=== PATIENT | female | born 1980 | race Caucasian/White ===

== ENCOUNTER 2018-12-11 19:29 | Emergency (ER) | payer MEDICARE, OTHER ==
[~2018-12-11] VITALS: Ht 165.1 cm; Wt 120.2 kg
--- OUTSIDE RECORDS SUMMARY | 2018-12-11 19:32 | XMS REPORT | Continuity of Care Document ---
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 Dental caries 10/19/2018 10/21/2018 [facility] TOOTHACHE Active 10/18/2018 [facility] Epigastric pain 08/20/2017 11/19/2017 [facility] Abdominal pain, acute, epigastric 08/13/2017 11/19/2017 [facility] CHEST PAIN Active 08/12/2017 [facility] NECK PAIN, HEAD PAIN Active 07/27/2013 [facility] 625.9 - FEM GENITAL SYM Active 12/02/2011 [facility] [place] FOOT INJURY Active 11/21/2011 [facility] R SIDE PAIN Active 06/29/2011 [facility] Melanoma Resolved Problem 12/26/2013 [facility] Melanoma Resolved Problem 01/25/2013 [facility] CHEST PAIN NOS Active [facility] Medications Medication Details Route Status Patient Instructions Ordering Provider Order Date Source tramadol hydrochloride 50 MG Oral Tablet 50 mg=1 tab, PO, Q6H, PRN Pain, X 3 day, # 12 tab, 0 Refill(s) Active 10/19/2018 [facility] Amoxicillin 875 MG / Clavulanate 125 MG Oral Tablet [Augmentin 875-mg] 875 mg=1 tab, PO, Q12H, X 10 day, # 20 tab, 0 Refill(s) Active 10/19/2018 [facility] Tramadol 50 mg, 1 tab, Route: PO, Drug form: TAB, ONCE, Dosing Weight 116, kg, > 50 kg, Priority: STAT, Start date: 10/19/18 1:08:00 CDT, Stop date: 10/19/18 1:08:00 CDTNotes: Not to exceed 400mg/day. (Same As: Ultram) Inactive 10/19/2018 [facility] Sucralfate 100 MG/ML Oral Suspension 1 gm=10 ml, PO, Before Meals & Bedtime, # 200 ml, 0 Refill(s) Active 08/13/2017 [facility] Metoclopramide 10 MG Oral Tablet 10 mg=1 tab, PO, Q6H, PRN nausea/vomiting, # 20 tab, 0 Refill(s) Active 08/13/2017 [facility] Ranitidine 150 MG Oral Tablet 150 mg=1 tab, PO, BID, # 60 tab, 0 Refill(s) Active 08/13/2017 [facility] Morphine 4 mg, 1 mL, Route: IVP, Drug form: INJ, ONCE, Dosing Weight 118.182, kg, Priority: STAT, Start date: 08/13/17 0:01:00 CDT, Stop date: 08/13/17 0:01:00 CDTNotes: (Same as:MORPhine Sulfate) Inactive 08/13/2017 [facility] Omnipaque 350 injectable solution 100 mL, Route: IVP, Dosing Weight 118.182, kg, ONCALL, For CTA exam with GFR > 45 mL/min, STAT, Start date: 08/12/17 23:40:00 CDT, Duration: 1 doses or times Inactive 08/13/2017 [facility] Omnipaque 300 injectable solution 115 mL, Route: IVP, Dosing Weight 118.182, kg, ONCALL, GFR > 45 mL/min, STAT, Start date: 08/12/17 22:51:00 CDT, Duration: 1 doses or times Inactive 08/13/2017 [facility] Haldol 5 mg, 1 mL, Route: IM, Drug form: INJ, ONCE, Dosing Weight 118.182, kg, Priority: STAT, Start date: 08/12/17 22:16:00 CDT, Stop date: 08/12/17 22:16:00 CDTNotes: (Same as: Haldol) Inactive 08/13/2017 [facility] Famotidine 20 mg, 2 mL, Route: IVP, Drug form: INJ, ONCE, Dosing Weight 118.182, kg, Priority: STAT, Start date: 08/12/17 21:14:00 CDT, Stop date: 08/12/17 21:14:00 CDTNotes: (Same as: Pepcid) Can be dilute in 5-10cc NS IVP: Slow IV push over at least 2 minutes. Inactive 08/13/2017 [facility] Maalox Advanced Regular Strength SUSP 30 mL, Route: PO, Drug Form: SUSP, Dosing Weight 118.182, kg, ONCE, STAT, Start date: 08/12/17 21:13:00 CDT, Stop date: 08/12/17 21:13:00 CDTNotes: (aluminum hydroxide- magnesium hyd-simethicone [id number]/5ml 30 ml ud ERVIN) Inactive 08/13/2017 [facility] Ondansetron 4 mg, 2 mL, Route: IVP, Drug form: INJ, ONCE, Dosing Weight 118.182, kg, Priority: STAT, Start date: 08/12/17 21:13:00 CDT, Stop date: 08/12/17 21:13:00 CDTNotes: (Same as: Zofran) MEDICATION WASTE Product Size: 4 mg Product Wasted: ___ mg Inactive 08/13/2017 [facility] Morphine 4 mg, 1 mL, Route: IVP, Drug form: INJ, ONCE, Dosing Weight 118.182, kg, Priority: STAT, Start date: 08/12/17 21:13:00 CDT, Stop date: 08/12/17 21:13:00 CDTNotes: (Same as:MORPhine Sulfate) Inactive 08/13/2017 [facility] aspirin 81 mg, 1 tab, Route: PO, Drug form: ECTAB, Daily, Dosing Weight 110, kg, Start date: 01/24/13 9:00:00, Duration: 30 day, Stop date: 02/22/13 9:00:00 PO No Longer Active [facility] 01/24/2013 [facility] pravastatin 40 mg, 2 tab, Route: PO, Drug form: TAB, Daily, Dosing Weight 110, kg, Start date: 01/24/13 9:00:00, Duration: 30 day, Stop date: 02/22/13 9:00:00 PO No Longer Active [facility] 01/24/2013 [facility] simvastatin 20 mg, 1 tab, Route: PO, Drug form: TAB, Bedtime, Dosing Weight 110, kg, Start date: 01/23/13 21:00:00, Duration: 30 day, Stop date: 02/21/13 21:00:00 PO No Longer Active [facility] 01/24/2013 [facility] pravastatin 40 mg oral tablet 40 mg, 1 tab, PO, Daily, 30 tab, Substitution Allowed, TAB PO Active [facility] 01/23/2013 [facility] Aspirin Low Dose 81 mg oral tablet 81 mg, 1 tab, PO, Daily, 30 tab, Substitution Allowed PO Active [facility] 01/23/2013 [facility] Aspirin Low Dose 81 mg oral tablet 81 mg, 1 tab, PO, Daily, 30 tab, Substitution Allowed PO No Longer Active [facility] 01/23/2013 [facility] pravastatin 40 mg oral tablet 40 mg, 1 tab, PO, Daily, 30 tab, Substitution Allowed, TAB PO No Longer Active [facility] 01/23/2013 [facility] lisinopril 2.5 mg, 0.5 tab, Route: PO, Drug form: TAB, Daily, Dosing Weight 110, kg, Start date: 01/23/13 9:00:00, Duration: 30 day, Stop date: 02/21/13 9:00:00 PO No Longer Active [facility] 01/23/2013 [facility] pantoprazole 40 mg, Route: IVP, Drug form: INJ, Daily, Dosing Weight 110, kg, Priority: Routine, Start date: 01/23/13 9:00:00, Duration: 30 day, Stop date: 02/21/13 9:00:00 IVP No Longer Active [facility] 01/23/2013 [facility] Saline Flush 0.9% 5 ml, Route: IVP, Drug Form: INJ, Dosing Weight 104.545, kg, Q12H, Start date: 01/23/13 9:00:00, Duration: 30 day, Stop date: 02/21/13 21:00:00 IVP No Longer Active [facility] 01/23/2013 [facility] nitroglycerin 2% ointment 0.5 inch, Route: TOP, Drug Form: OINT, Dosing Weight 104.545, kg, TID, Start date: 01/23/13 6:00:00, Duration: 30 day, Stop date: 02/21/13 18:00:00 TOP No Longer Active [facility] 01/23/2013 [facility] NS 0.45% IV 1,000 mL 1,000 mL, Rate: 125 ml/hr, Infuse over: 8 hr, Route: IV, Dosing Weight 110 kg, Total Volume: 1,000, Start date: 01/23/13 5:21:00, Duration: 1 day, Stop date: 01/24/13 5:20:00 IV No Longer Active [facility] 01/23/2013 [facility] simvastatin 20 mg, 1 tab, Route: PO, Drug form: TAB, ONCE, Dosing Weight 110, kg, Start date: 01/23/13 3:42:00, Stop date: 01/23/13 3:42:00 PO No Longer Active [facility] 01/23/2013 [facility] morphine Sulfate 2 mg, 1 mL, Route: IVP, Drug form: INJ, Q2H, Dosing Weight 110, kg, PRN Chest Pain, Start date: 01/23/13 3:40:00, Duration: 30 day, Stop date: 02/22/13 3:39:00 IVP No Longer Active [facility] 01/23/2013 [facility] acetaminophen 650 mg, 2 tab, Route: PO, Drug form: TAB, Q6H, Dosing Weight 110, kg, PRN Pain, Start date: 01/23/13 3:40:00, Duration: 30 day, Stop date: 02/22/13 3:39:00 PO No Longer Active [facility] 01/23/2013 [facility] Zofran 4 mg, 2 mL, Route: IV, Drug form: INJ, Q4H, Dosing Weight 110, kg, PRN as needed for nausea/vomiting, Start date: 01/23/13 3:40:00, Duration: 30 day, Stop date: 02/22/13 3:39:00 IV No Longer Active [facility] 01/23/2013 [facility] atropine 0.5 mg, 5 mL, Route: IVP, Drug form: INJ, PRN, PRN Bradycardia, Start date: 01/23/13 2:13:00, Duration: 30 day, Stop date: 02/22/13 2:12:00 IVP No Longer Active [facility] 01/23/2013 [facility] Saline Flush 0.9% 5 ml, Route: IVP, Drug Form: INJ, Dosing Weight 104.545, kg, PRN, PRN Line Flush, Start date: 01/23/13 2:09:00, Duration: 30 day, Stop date: 02/22/13 2:08:00 IVP No Longer Active [facility] 01/23/2013 [facility] nitroglycerin SL Tab 0.4 mg, 1 tab, Route: SL, Drug form: TAB, Q5Min, Dosing Weight 104.545, kg, PRN Chest Pain, Start date: 01/23/13 2:09:00, Duration: 3 doses or times, Stop date: Limited # of times SL No Longer Active [facility] 01/23/2013 [facility] aspirin 324 mg, 4 tab, Route: PO, Drug form: CHEWTAB, ONCE, Dosing Weight 104.545, kg, Start date: 01/23/13 2:09:00, Stop date: 01/23/13 2:09:00 PO No Longer Active [facility] 01/23/2013 [facility] ketorolac 30 mg/mL injectable solution 30 mg, 1 mL, Route: IV, Drug form: INJ, ONCE, Dosing Weight 104.545, kg, Start date: 01/23/13 1:41:00, Stop date: 01/23/13 1:41:00 IV No Longer Active [facility] 01/23/2013 [facility] Saline Flush 0.9% 5 mL, Route: IVP, Drug Form: INJ, Dosing Weight 104.545, kg, Q8H, PRN Line Flush, Start date: 01/22/13 23:49:00, Duration: 30 day, Stop date: 02/21/13 23:48:00, Administer at least once every 8 hoursAdminister at least once every 8 hours IVP No Longer Active [facility] 01/23/2013 [facility] tramadol 50 mg oral tablet 50 mg, Route: PO, ONCE, Start date: 11/21/11 18:00:00, Stop date: 11/21/11 18:00:00 PO No Longer Active [facility] 11/21/2011 [facility] Ultram 50 mg oral tablet 1 - 2 tabs, PO, Q4-6H, PRN, 30 tab, as needed for pain, Substitution Allowed PO Active [facility] 11/21/2011 [facility] ferrous sulfate 325 mg oral enteric coated tablet 325 mg, 1 tab, PO, Daily, 30 tab, Substitution Allowed, ECTAB PO Active [facility] 06/30/2011 [facility] Naprosyn 500 mg oral tablet 500 mg, 1 tab, PO, BID, 14 tab, Substitution Allowed, TAB PO Active [facility] 06/30/2011 [facility] Flexeril 10 mg oral tablet 10 mg, 1 tab, PO, TID, PRN, 15 tab, for spasm, Substitution Allowed, TAB PO Active [facility] 06/30/2011 [facility] acetaminophen-hydrocodone 500 mg-5 mg oral tablet 1-2 tab, PO, Q4-6H, PRN, 15 tab, Pain, Substitution Allowed, Maintenance PO Active [facility] 06/30/2011 [facility] Cipro 500 mg oral tablet 500 mg, 1 tab, PO, BID, 6 tab, Substitution Allowed PO Active [facility] 06/30/2011 [facility] Flexeril 10 mg, 1 tab, Route: PO, Drug form: TAB, ONCE, PRN Spasm, Start date: 06/30/11 3:15:00 PO No Longer Active [facility] 06/30/2011 [facility] Toradol 30 mg/mL injectable solution 30 mg, 1 mL, Route: IV, Drug form: INJ, ONCE, Start date: 06/30/11 3:15:00, Stop date: 06/30/11 3:15:00 IV No Longer Active [facility] 06/30/2011 [facility] acetaminophen-hydrocodone 325 mg-5 mg oral tablet 1 tab, Route: PO, Drug Form: TAB, ONCE, STAT, Start date: 06/30/11 3:15:00, Stop date: 06/30/11 3:15:00 PO No Longer Active [facility] 06/30/2011 [facility] morphine Sulfate 4 mg, Route: IVP, ONCE, Priority: STAT, Start date: 06/30/11 1:38:00, Stop date: 06/30/11 1:38:00 IVP No Longer Active [facility] 06/30/2011 [facility] Zofran 4 mg, Route: IVP, ONCE, Priority: STAT, Start date: 06/29/11 23:49:00, Stop date: 06/29/11 23:49:00 IVP No Longer Active [facility] 06/30/2011 [facility] Sodium Chloride 0.9% (Bolus) IV 1000 mL 1,000 mL, Rate: 1,000 ml/hr, Infuse over: 1 hr, Route: IV, Total Volume: 1,000, Priority: STAT, Start date: 06/29/11 23:49:00, Duration: 1 doses or times, Stop date: 06/30/11 0:48:00, Bolus DoseBolus Dose IV No Longer Active [facility] 06/30/2011 [facility] morphine Sulfate 4 mg, Route: IVP, ONCE, Priority: STAT, Start date: 06/29/11 23:49:00, Stop date: 06/29/11 23:49:00 IVP No Longer Active [facility] 06/30/2011 [facility] Cipro I.V. 400 mg/200 mL intravenous solution 400 mg, Route: IVPB, ONCE, Start date: 06/29/11 23:49:00, Stop date: 06/29/11 23:49:00 IVPB No Longer Active [facility] 06/30/2011 [facility] Allergies, Adverse Reactions, Alerts Substance Category Reaction Severity Reaction type Status Date Reported Comments Source No Known Medication Allergies Assertion Drug allergy [facility] Immunizations No Data Provided for This Section Results Order Name Results Value Reference Range Date Interpretation Comments Source HEMATOLOGY D-Dimer 0.56 08/13/2017 [facility] CARDIAC ENZYMES Total CK 49 12 - 191 08/13/2017 [facility] CARDIAC ENZYMES Troponin-I <0.02 0.00 - 0.40 08/13/2017 [facility] CHEM PANEL Lipase Lvl 123 73 - 393 08/13/2017 [facility] CHEM PANEL A/G Ratio 0.7 0.7 - 1.6 08/13/2017 [facility] CHEM PANEL Globulin 4.7 2.7 - 4.2 08/13/2017 [facility] CHEM PANEL Albumin Lvl 3.2 3.5 - 5.0 08/13/2017 [facility] CHEM PANEL ALT 16 0 - 65 08/13/2017 [facility] CHEM PANEL Alk Phos 99 39 - 136 08/13/2017 [facility] CHEM PANEL AST 8 0 - 37 08/13/2017 [facility] CHEM PANEL Bili Indirect Unable to Calculate 0.0 - 1.0 08/13/2017 [facility] CHEM PANEL Bili Direct <0.1 0.0 - 0.3 08/13/2017 [facility] CHEM PANEL Bili Total 0.3 0.2 - 1.3 08/13/2017 [facility] CHEM PANEL Total Protein 7.9 6.4 - 8.4 08/13/2017 [facility] ELECTROLYTES AGAP 9.2 10.0 - 20.0 08/13/2017 [facility] ELECTROLYTES eGFR 110 08/13/2017 Result Comment: The eGFR is calculated using the CKD-EPI formula. In most young, healthy individuals the eGFR will be >90 mL/min/1.73m2. The eGFR declines with age. An eGFR of 60-89 may be normal in some populations, particularly the elderly, for whom the CKD-EPI formula has not been extensively validated. Use of the eGFR is not recommended in the following populations:

Individuals with unstable creatinine concentrations, including patients and those with serious co-morbid conditions.

Patients with extremes in muscle mass or diet.

The data above are obtained from the National Kidney Disease Education Program (NKDEP) which additionally recommends that when the eGFR is used in patients with extremes of body mass index for purposes of drug dosing, the eGFR should be multiplied by the estimated BMI. [facility] ELECTROLYTES Creatinine Lvl 0.70 0.50 - 1.40 08/13/2017 [facility] ELECTROLYTES CO2 29 24 - 32 08/13/2017 [facility] ELECTROLYTES Chloride Lvl 105 95 - 109 08/13/2017 [facility] ELECTROLYTES Sodium Lvl 140 135 - 145 08/13/2017 [facility] ELECTROLYTES BUN 9 7 - 22 08/13/2017 [facility] ELECTROLYTES Potassium Lvl 3.2 3.5 - 5.1 08/13/2017 [facility] ELECTROLYTES Calcium Lvl 9.1 8.5 - 10.5 08/13/2017 [facility] ELECTROLYTES Glucose Lvl 94 70 - 99 08/13/2017 [facility] ENDOCRINOLOGY S Preg Negative *NA* (08/12/17 7:41 PM) Negative 08/13/2017 [facility] MPV 8.5 7.4 - 10.4 08/13/2017 [facility] RDW 16.0 11.5 - 14.5 08/13/2017 [facility] Platelet 363 133 - 450 08/13/2017 [facility] RBC 4.85 4.20 - 5.40 08/13/2017 [facility] WBC 9.6 3.7 - 10.4 08/13/2017 [facility] MCHC 33.7 32.0 - 36.0 08/13/2017 [facility] MCH 28.2 27.0 - 31.0 08/13/2017 [facility] MCV 83.8 80.0 - 98.0 08/13/2017 [facility] Hct 40.6 36.0 - 48.0 08/13/2017 [facility] Hgb 13.7 12.0 - 16.0 08/13/2017 [facility] Lymphocytes 27.8 20.0 - 40.0 08/13/2017 [facility] Segs 63.1 45.0 - 75.0 08/13/2017 [facility] Monocytes # 0.6 0.0 - 0.8 08/13/2017 [facility] Eosinophils # 0.2 0.0 - 0.5 08/13/2017 [facility] Segs-Bands # 6.0 1.5 - 8.1 08/13/2017 [facility] Lymphocytes # 2.7 1.0 - 5.5 08/13/2017 [facility] Basophils 0.4 0.0 - 1.0 08/13/2017 [facility] Eosinophils 2.2 0.0 - 4.0 08/13/2017 [facility] Basophils # 0.0 0.0 - 0.2 08/13/2017 [facility] Monocytes 6.5 2.0 - 12.0 08/13/2017 [facility] CARDIAC ENZYMES BNP 35 <=100 pg/mL 12/24/2013 <sup>3</sup>Interpretive Data: Elevated results are in line with increasing severity of
congestive heart failure. Minor elevations between 100 and 300
may be seen with Myocardial Ischemia, Sodium retaining drugs,
and compensated/treated heart failure. [facility] CARDIAC ENZYMES Troponin-I <0.02 0.00 - 0.40 12/24/2013 [facility] CARDIAC ENZYMES Total CK 29 12 - 191 12/24/2013 [facility] CHEM PANEL Lipase Lvl 140 73 - 393 12/24/2013 [facility] CHEM PANEL eGFR 113 12/24/2013 <sup>1</sup>Result Comment: The eGFR is calculated using the CKD-EPI formula. In most young, healthy individuals the eGFR will be >90 mL/min/1.73m2. The eGFR declines with age. An eGFR of 60-89 may be normal in some populations, particularly the elderly, for whom the CKD-EPI formula has not been extensively validated. Use of the eGFR is not recommended in the following populations:& lt;br/>
Individuals with unstable creatinine concentrations, including patients and those with serious co-morbid conditions.

Patients with extremes in muscle mass or diet.

The data above are obtained from the National Kidney Disease Education Program (NKDEP) which additionally recommends that when the eGFR is used in patients with extremes of body mass index for purposes of drug dosing, the eGFR should be multiplied by the estimated BMI. [facility] CHEM PANEL Total Protein 6.8 6.4 - 8.4 12/24/2013 [facility] CHEM PANEL Calcium Lvl 8.8 8.5 - 10.5 12/24/2013 [facility] CHEM PANEL BUN 14 7 - 22 12/24/2013 [facility] CHEM PANEL Glucose Lvl 90 70 - 99 12/24/2013 <sup>2</sup>Interpretive Data: Adult reference range values reflect the clinical guidelines
of the [place] [employer]. [facility] CHEM PANEL Albumin Lvl 2.9 3.5 - 5.0 12/24/2013 [facility] CHEM PANEL ALT 19 0 - 65 12/24/2013 [facility] CHEM PANEL CO2 28 24 - 32 12/24/2013 [facility] CHEM PANEL Alk Phos 81 39 - 136 12/24/2013 [facility] CHEM PANEL Bili Total 0.2 0.2 - 1.3 12/24/2013 [facility] CHEM PANEL AST 10 0 - 37 12/24/2013 [facility] CHEM PANEL Creatinine Lvl 0.7 0.5 - 1.4 12/24/2013 [facility] CHEM PANEL Potassium Lvl 3.6 3.5 - 5.1 12/24/2013 [facility] CHEM PANEL Sodium Lvl 141 135 - 145 12/24/2013 [facility] CHEM PANEL Chloride Lvl 108 95 - 109 12/24/2013 [facility] CHEM PANEL B/C Ratio 20 6 - 25 12/24/2013 [facility] CHEM PANEL AGAP 8.6 10.0 - 20.0 12/24/2013 [facility] CHEM PANEL A/G Ratio 0.7 0.7 - 1.6 12/24/2013 [facility] CHEM PANEL Globulin 3.9 2.0 - 4.0 12/24/2013 [facility] HEMATOLOGY Lymphocytes # 2.7 1.0 - 5.5 12/24/2013 [facility] HEMATOLOGY Segs-Bands # 5.7 1.5 - 8.1 12/24/2013 [facility] HEMATOLOGY Monocytes # 0.6 0.0 - 0.8 12/24/2013 [facility] HEMATOLOGY Eosinophils # 0.1 0.0 - 0.5 12/24/2013 [facility] Lymphocytes 29.5 20.0 - 40.0 12/24/2013 [facility] Eosinophils 1.4 0.0 - 4.0 12/24/2013 [facility] Monocytes 6.4 2.0 - 12.0 12/24/2013 [facility] Basophils 0.3 0.0 - 1.0 12/24/2013 [facility] Segs 62.4 45.0 - 75.0 12/24/2013 [facility] D-Dimer 0.27 12/24/2013 <sup>5</sup>Interpretive Data: In [facility], quantitative D-Dimer is generally greater than
0.66 ug/mL FEU. Values of quantitative D-Dimer less than
0.40 ug/mL FEU have been reported to be associated with a low
probability of deep vein thrombosis/pulmonary embolism.
This test alone should not be used to rule out DVT/PE. [facility] Platelet 322 133 - 450 12/24/2013 [facility] WBC 9.2 3.7 - 10.4 12/24/2013 [facility] Hgb 12.1 12.0 - 16.0 12/24/2013 [facility] RBC 4.34 4.20 - 5.40 12/24/2013 [facility] MCV 82.3 81.0 - 99.0 12/24/2013 [facility] Hct 35.7 36.0 - 48.0 12/24/2013 [facility] RDW 15.3 11.5 - 14.5 12/24/2013 [facility] MCHC 33.7 32.0 - 36.0 12/24/2013 [facility] MCH 27.8 27.0 - 31.0 12/24/2013 [facility] MPV 8.5 7.4 - 10.4 12/24/2013 [facility] INR 1.03 0.85 - 1.17 12/24/2013 <sup>4</sup>Interpretive Data: RECOMMENDED RANGES FOR PROTIME INR:
2.0-3.0 for most medical and surgical thromboembolic states.
2.5-3.5 for artificial heart valves and recurrent embolism.

INR SHOULD BE USED ONLY FOR PATIENTS ON STABLE ANTICOAGULANT THERAPY. [facility] PTT 29.5 22.9 - 35.8 12/24/2013 <sup>6</sup>Interpretive Data: Heparin Therapeutic Range: 57 - 92 Seconds [facility] HEMATOLOGY PT 13.4 12.0 - 14.7 12/24/2013 [facility] URINE AND STOOL UA Ketones Negative mg/dL Negative mg/dL 12/24/2013 [facility] URINE AND STOOL UA Spec Grav 1.025 <=1.030 12/24/2013 [facility] URINE AND STOOL UA Turbidity Marked *ABN* (12/23/13 7:20 PM) Clear 12/24/2013 [facility] URINE AND STOOL UA Color Yellow *NA* (12/23/13 7:20 PM) Yellow 12/24/2013 [facility] URINE AND STOOL UA Bili Negative *NA* (12/23/13 7:20 PM) Negative 12/24/2013 [facility] URINE AND STOOL UA Blood Negative (12/23/13 7:20 PM) Negative 12/24/2013 [facility] URINE AND STOOL UA RBC 8 0 - 2 12/24/2013 [facility] URINE AND STOOL UA pH 5.0 5.0 - 8.0 12/24/2013 [facility] URINE AND STOOL UA Glucose Negative mg/dL Negative mg/dL 12/24/2013 [facility] URINE AND STOOL UA Protein Negative mg/dL Negative mg/dL 12/24/2013 [facility] URINE AND STOOL UA Urobilinogen 2.0 0.1 - 1.0 12/24/2013 [facility] URINE AND STOOL UA WBC 6 0 - 5 12/24/2013 [facility] URINE AND STOOL UA Sq Epi Many /LPF Few /LPF 12/24/2013 [facility] URINE AND STOOL UA Leuk Est Small *ABN* (12/23/13 7:20 PM) Negative 12/24/2013 [facility] URINE AND STOOL UA Nitrite Negative (12/23/13 7:20 PM) Negative 12/24/2013 [facility] URINE AND STOOL UA Mucus Few /LPF None Seen /LPF 12/24/2013 [facility] URINE AND STOOL UA Bacteria Occasional /HPF None Seen /HPF 12/24/2013 [facility] URINE CHEM U Preg Negative (12/23/13 7:20 PM) Negative 12/24/2013 [facility] CHEMISTRY Total CK 38 12 - 191 01/23/2013 Normal [facility] CHEMISTRY Troponin-I <0.02 0.00 - 0.40 01/23/2013 Normal [facility] CHEMISTRY Troponin-I <0.02 0.00 - 0.40 01/23/2013 Normal [facility] CHEMISTRY Total CK 34 12 - 191 01/23/2013 Normal [facility] CHEMISTRY Bili Indirect >0.1 0.0 - 1.0 01/23/2013 Normal [facility] CHEMISTRY A/G Ratio 0.9 0.7 - 1.6 01/23/2013 Normal [facility] CHEMISTRY Globulin 3.5 2.0 - 4.0 01/23/2013 Normal [facility] CHEMISTRY Bili Total 0.2 0.2 - 1.3 01/23/2013 Normal [facility] CHEMISTRY Bili Direct <0.1 0.0 - 0.3 01/23/2013 Normal [facility] CHEMISTRY AST 5 0 - 37 01/23/2013 Normal [facility] CHEMISTRY Alk Phos 82 39 - 136 01/23/2013 Normal [facility] CHEMISTRY Albumin Lvl 3.0 3.5 - 5.0 01/23/2013 LOW [facility] CHEMISTRY ALT 15 0 - 65 01/23/2013 Normal [facility] CHEMISTRY Total Protein 6.5 6.4 - 8.4 01/23/2013 Normal [facility] CHEMISTRY Magnesium Lvl 1.9 1.8 - 2.4 01/23/2013 Normal [facility] CHEMISTRY Phosphorus 3.5 2.5 - 4.5 01/23/2013 Normal [facility] CHEMISTRY Trig 225 <=149 01/23/2013 [facility] CHEMISTRY Chol 214 <=199 01/23/2013 [facility] CHEMISTRY LDL 142 <=99 01/23/2013 [facility] CHEMISTRY HDL 27 >=61 01/23/2013 LOW [facility] CHEMISTRY CHD Risk 7.93 3.90 - 5.80 01/23/2013 [facility] CHEMISTRY eGFR 120 01/23/2013 NA <sup>1</sup>Result Comment: The eGFR is calculated using the CKD-EPI formula. In most young, healthy individuals the eGFR will be >90 mL/min/1.73m2. The eGFR declines with age. An eGFR of 60-89 may be normal in some populations, particularly the elderly, for whom the CKD-EPI formula has not been extensively validated. Use of the eGFR is not recommended in the following populations:& lt;br/>
Individuals with unstable creatinine concentrations, including patients and those with serious co-morbid conditions.

Patients with extremes in muscle mass or diet.

The data above are obtained from the National Kidney Disease Education Program (NKDEP) which additionally recommends that when the eGFR is used in patients with extremes of body mass index for purposes of drug dosing, the eGFR should be multiplied by the estimated BMI. [facility] CHEMISTRY Calcium Lvl 8.7 8.5 - 10.5 01/23/2013 Normal [facility] CHEMISTRY AGAP 11.8 10.0 - 20.0 01/23/2013 Normal [facility] CHEMISTRY Glucose Lvl 90 70 - 99 01/23/2013 Normal <sup>3</sup>Interpretive Data: Adult reference range values reflect the clinical guidelines
of the [place] [employer]. [facility] CHEMISTRY Creatinine Lvl 0.6 0.5 - 1.4 01/23/2013 Normal [facility] CHEMISTRY BUN 16 7 - 22 01/23/2013 [facility] CHEMISTRY CO2 26 24 - 32 01/23/2013 Normal [facility] CHEMISTRY Chloride Lvl 111 95 - 109 01/23/2013 [facility] CHEMISTRY Sodium Lvl 145 135 - 145 01/23/2013 Normal [facility] CHEMISTRY Potassium Lvl 3.8 3.5 - 5.1 01/23/2013 Normal [facility] HEMATOLOGY Basophils 0.7 0.0 - 1.0 01/23/2013 Normal [facility] HEMATOLOGY Eosinophils 1.6 0.0 - 4.0 01/23/2013 Normal [facility] HEMATOLOGY Segs-Bands # 5.3 1.5 - 8.1 01/23/2013 Normal [facility] HEMATOLOGY Monocytes 5.4 2.0 - 12.0 01/23/2013 Normal [facility] HEMATOLOGY Lymphocytes 30.1 20.0 - 40.0 01/23/2013 Normal [facility] HEMATOLOGY Eosinophils # 0.1 0.0 - 0.5 01/23/2013 Normal [facility] HEMATOLOGY Monocytes # 0.5 0.0 - 0.8 01/23/2013 Normal [facility] HEMATOLOGY Basophils # 0.1 0.0 - 0.2 01/23/2013 Normal [facility] HEMATOLOGY Lymphocytes # 2.6 1.0 - 5.5 01/23/2013 Normal [facility] HEMATOLOGY Segs 62.2 45.0 - 75.0 01/23/2013 Normal [facility] HEMATOLOGY MCH 25.0 27.0 - 31.0 01/23/2013 LOW [facility] HEMATOLOGY Hct 33.2 36.0 - 48.0 01/23/2013 LOW [facility] HEMATOLOGY MCV 78.1 81.0 - 99.0 01/23/2013 LOW [facility] HEMATOLOGY RDW 17.4 11.5 - 14.5 01/23/2013 HI [facility] HEMATOLOGY Platelet 307 133 - 450 01/23/2013 Normal [facility] HEMATOLOGY MCHC 32.0 32.0 - 36.0 01/23/2013 Normal [facility] Hgb 10.6 12.0 - 16.0 01/23/2013 LOW [facility] MPV 8.4 7.4 - 10.4 01/23/2013 Normal [facility] HEMATOLOGY RBC 4.25 4.20 - 5.40 01/23/2013 Normal [facility] WBC 8.5 3.7 - 10.4 01/23/2013 Normal [facility] INR 1.00 0.85 - 1.17 01/23/2013 Normal <sup>6</sup>Interpretive Data: RECOMMENDED RANGES FOR PROTIME INR:
2.0-3.0 for most medical and surgical thromboembolic states.
2.5-3.5 for artificial heart valves and recurrent embolism.

INR SHOULD BE USED ONLY FOR PATIENTS ON STABLE ANTICOAGULANT THERAPY. [facility] PTT 29.0 22.9 - 35.8 01/23/2013 Normal <sup>9</sup>Interpretive Data: Heparin Therapeutic Range: 57 - 92 Seconds [facility] HEMATOLOGY PT 13.1 12.0 - 14.7 01/23/2013 Normal [facility] CHEMISTRY S Preg Negative *NA* (01/23/2013 00:05:00) Negative 01/23/2013 NA [facility] CHEMISTRY Magnesium Lvl 1.9 1.8 - 2.4 01/23/2013 Normal [facility] CHEMISTRY eGFR 97 01/23/2013 NA <sup>2</sup>Result Comment: The eGFR is calculated using the CKD-EPI formula. In most young, healthy individuals the eGFR will be >90 mL/min/1.73m2. The eGFR declines with age. An eGFR of 60-89 may be normal in some populations, particularly the elderly, for whom the CKD-EPI formula has not been extensively validated. Use of the eGFR is not recommended in the following populations:& lt;br/>
Individuals with unstable creatinine concentrations, including patients and those with serious co-morbid conditions.

Patients with extremes in muscle mass or diet.

The data above are obtained from the National Kidney Disease Education Program (NKDEP) which additionally recommends that when the eGFR is used in patients with extremes of body mass index for purposes of drug dosing, the eGFR should be multiplied by the estimated BMI. [facility] CHEMISTRY B/C Ratio 16 6 - 25 01/23/2013 Normal [facility] CHEMISTRY Bili Total 0.2 0.2 - 1.3 01/23/2013 Normal [facility] CHEMISTRY AGAP 10.5 10.0 - 20.0 01/23/2013 Normal [facility] CHEMISTRY AST 7 0 - 37 01/23/2013 Normal [facility] CHEMISTRY Albumin Lvl 3.0 3.5 - 5.0 01/23/2013 LOW [facility] CHEMISTRY Total Protein 7.1 6.4 - 8.4 01/23/2013 Normal [facility] CHEMISTRY Alk Phos 85 39 - 136 01/23/2013 Normal [facility] CHEMISTRY ALT 15 0 - 65 01/23/2013 Normal [facility] CHEMISTRY A/G Ratio 0.7 0.7 - 1.6 01/23/2013 Normal [facility] CHEMISTRY Globulin 4.1 2.0 - 4.0 01/23/2013 HI [facility] CHEMISTRY BUN 13 7 - 22 01/23/2013 Normal [facility] CHEMISTRY Creatinine Lvl 0.8 0.5 - 1.4 01/23/2013 Normal [facility] CHEMISTRY Glucose Lvl 90 70 - 99 01/23/2013 Normal <sup>4</sup>Interpretive Data: Adult reference range values reflect the clinical guidelines
of the [place] [employer]. [facility] CHEMISTRY CO2 31 24 - 32 01/23/2013 Normal [facility] CHEMISTRY Calcium Lvl 8.6 8.5 - 10.5 01/23/2013 Normal [facility] CHEMISTRY Sodium Lvl 146 135 - 145 01/23/2013 HI [facility] CHEMISTRY Potassium Lvl 3.5 3.5 - 5.1 01/23/2013 Normal [facility] CHEMISTRY Chloride Lvl 108 95 - 109 01/23/2013 Normal [facility] CHEMISTRY Troponin-I <0.02 0.00 - 0.40 01/23/2013 Normal [facility] CHEMISTRY CK MB <0.5 0.5 - 3.6 01/23/2013 Normal [facility] CHEMISTRY Total CK 37 12 - 191 01/23/2013 Normal [facility] CHEMISTRY BNP 21 <=100 01/23/2013 Normal <sup>5</sup>Interpretive Data: Elevated results are in line with increasing severity of
congestive heart failure. Minor elevations between 100 and 300
may be seen with Myocardial Ischemia, Sodium retaining drugs,
and compensated/treated heart failure. [facility] CHEMISTRY CK MB Index <1.4 0.0 - 2.5 01/23/2013 Normal [facility] HEMATOLOGY PTT 29.2 22.9 - 35.8 01/23/2013 Normal <sup>10</sup>Interpretive Data: Heparin Therapeutic Range: 57 - 92 Seconds [facility] HEMATOLOGY PT 13.0 12.0 - 14.7 01/23/2013 Normal [facility] HEMATOLOGY INR 0.99 0.85 - 1.17 01/23/2013 Normal <sup>7</sup>Interpretive Data: RECOMMENDED RANGES FOR PROTIME INR:
2.0-3.0 for most medical and surgical thromboembolic states.
2.5-3.5 for artificial heart valves and recurrent embolism.

INR SHOULD BE USED ONLY FOR PATIENTS ON STABLE ANTICOAGULANT THERAPY. [facility] HEMATOLOGY D-Dimer 0.31 01/23/2013 NA <sup>8</sup>Interpretive Data: In DIC, quantitative D-Dimer is generally greater than
0.66 ug/mL FEU. Values of quantitative D-Dimer less than
0.40 ug/mL FEU have been reported to be associated with a low
probability of deep vein thrombosis/pulmonary embolism.
This test alone should not be used to rule out DVT/PE. [facility] HEMATOLOGY WBC 8.1 3.7 - 10.4 01/23/2013 Normal [facility] HEMATOLOGY Hct 35.1 36.0 - 48.0 01/23/2013 LOW [facility] HEMATOLOGY Platelet 329 133 - 450 01/23/2013 Normal [facility] HEMATOLOGY RDW 17.6 11.5 - 14.5 01/23/2013 HI [facility] HEMATOLOGY MCHC 32.3 32.0 - 36.0 01/23/2013 Normal [facility] HEMATOLOGY MCH 25.2 27.0 - 31.0 01/23/2013 LOW [facility] HEMATOLOGY MCV 78.1 81.0 - 99.0 01/23/2013 LOW [facility] HEMATOLOGY Hgb 11.3 12.0 - 16.0 01/23/2013 LOW [facility] HEMATOLOGY RBC 4.49 4.20 - 5.40 01/23/2013 Normal [facility] HEMATOLOGY MPV 8.5 7.4 - 10.4 01/23/2013 Normal [facility] HEMATOLOGY Segs-Bands # 5.6 1.5 - 8.1 01/23/2013 Normal [facility] HEMATOLOGY Basophils 0.0 0.0 - 1.0 01/23/2013 Normal [facility] HEMATOLOGY Monocytes # 0.3 0.0 - 0.8 01/23/2013 Normal [facility] HEMATOLOGY Lymphocytes # 2.0 1.0 - 5.5 01/23/2013 Normal [facility] HEMATOLOGY Eosinophils 1.8 0.0 - 4.0 01/23/2013 Normal [facility] HEMATOLOGY Basophils # 0.0 0.0 - 0.2 01/23/2013 Normal [facility] HEMATOLOGY Eosinophils # 0.1 0.0 - 0.5 01/23/2013 Normal [facility] HEMATOLOGY Lymphocytes 25.1 20.0 - 40.0 01/23/2013 Normal [facility] HEMATOLOGY Segs 69.4 45.0 - 75.0 01/23/2013 Normal [facility] HEMATOLOGY Monocytes 3.7 2.0 - 12.0 01/23/2013 Normal [facility] CHEMISTRY U Preg Negative (06/30/2011 00:36:00) Negative 06/30/2011 Normal [facility] CHEMISTRY Creatinine Lvl 0.7 0.5 - 1.4 06/30/2011 Normal [facility] CHEMISTRY Sodium Lvl 142 135 - 145 06/30/2011 Normal [facility] CHEMISTRY CO2 25 24 - 32 06/30/2011 Normal [facility] CHEMISTRY Chloride Lvl 110 95 - 109 06/30/2011 [facility] CHEMISTRY Potassium Lvl 3.5 3.5 - 5.1 06/30/2011 Normal [facility] CHEMISTRY Calcium Lvl 8.5 8.5 - 10.5 06/30/2011 Normal [facility] CHEMISTRY Glucose Lvl 93 06/30/2011 NA <sup>1</sup>Interpretive Data: Reference Ranges : 0 - 7 days : 41 - 90 mg/dL 7 days - 150 yrs : 70 - 99 mg/dL (fasting), based on the clinical recommendations of the [place] [employer]. [facility] CHEMISTRY Total Protein 7.8 6.4 - 8.4 06/30/2011 Normal [facility] CHEMISTRY ALT 15 0 - 65 06/30/2011 Normal [facility] CHEMISTRY Alk Phos 66 39 - 136 06/30/2011 Normal [facility] CHEMISTRY Albumin Lvl 3.3 3.5 - 5.0 06/30/2011 LOW [facility] CHEMISTRY BUN 16 7 - 22 06/30/2011 Normal [facility] CHEMISTRY A/G Ratio 0.7 0.7 - 1.6 06/30/2011 Normal [facility] CHEMISTRY Bili Total 0.2 0.2 - 1.3 06/30/2011 Normal [facility] CHEMISTRY AST 8 0 - 37 06/30/2011 Normal [facility] CHEMISTRY Globulin 4.5 2.0 - 4.0 06/30/2011 HI [facility] CHEMISTRY B/C Ratio 23 6 - 25 06/30/2011 Normal [facility] CHEMISTRY AGAP 10.5 10.0 - 20.0 06/30/2011 Normal [facility] HEMATOLOGY Microcyte 1+ 25 *ABN* (06/30/2011 00:36:00) None Seen 06/30/2011 ABN <sup>25</sup>Result Comment: Collection date/time has been modified to: 00:36:00. Previous collection date/time: 00:36:00. [facility] HEMATOLOGY Hypochrom Slight 24 (06/30/2011 00:36:00) None Seen 06/30/2011 Normal <sup>24</sup>Result Comment: Collection date/time has been modified to: 00:36:00. Previous collection date/time: 00:36:00. [facility] HEMATOLOGY Polychrom Slight 23 (06/30/2011 00:36:00) None Seen 06/30/2011 Normal <sup>23</sup>Result Comment: Collection date/time has been modified to: 00:36:00. Previous collection date/time: 00:36:00. [facility] HEMATOLOGY Elliptocyte Slight 26 *ABN* (06/30/2011 00:36:00) None Seen 06/30/2011 ABN <sup>26</sup>Result Comment: Collection date/time has been modified to: 00:36:00. Previous collection date/time: 00:36:00. [facility] HEMATOLOGY Basophils 0.5 0.0 - 1.0 06/30/2011 Normal <sup>16</sup>Result Comment: Collection date/time has been modified to: 00:36:00. Previous collection date/time: 00:36:00. [facility] Segs-Bands # 7.6 1.5 - 8.1 06/30/2011 Normal <sup>17</sup>Result Comment: Collection date/time has been modified to: 00:36:00. Previous collection date/time: 00:36:00. [facility] RBC Morph See Note 22 (06/30/2011 00:36:00) 06/30/2011 Normal <sup>22</sup>Result Comment: Collection date/time has been modified to: 00:36:00. Previous collection date/time: 00:36:00. [facility] Lymphocytes 23.5 20.0 - 40.0 06/30/2011 Normal <sup>13</sup>Result Comment: Collection date/time has been modified to: 00:36:00. Previous collection date/time: 00:36:00. [facility] Monocytes 6.4 2.0 - 12.0 06/30/2011 Normal <sup>14</sup>Result Comment: Collection date/time has been modified to: 00:36:00. Previous collection date/time: 00:36:00. [facility] Eosinophils 2.3 0.0 - 4.0 06/30/2011 Normal <sup>15</sup>Result Comment: Collection date/time has been modified to: 00:36:00. Previous collection date/time: 00:36:00. [facility] Segs 67.3 45.0 - 75.0 06/30/2011 Normal <sup>12</sup>Result Comment: Collection date/time has been modified to: 00:36:00. Previous collection date/time: 00:36:00. [facility] Plt Morph Normal 27 (06/30/2011 00:36:00) 06/30/2011 Normal <sup>27</sup>Result Comment: Collection date/time has been modified to: 00:36:00. Previous collection date/time: 00:36:00. [facility] Monocytes # 0.7 0.0 - 0.8 06/30/2011 Normal <sup>19</sup>Result Comment: Collection date/time has been modified to: 00:36:00. Previous collection date/time: 00:36:00. [facility] Basophils # 0.1 0.0 - 0.2 06/30/2011 Normal <sup>21</sup>Result Comment: Collection date/time has been modified to: 00:36:00. Previous collection date/time: 00:36:00. [facility] Lymphocytes # 2.7 1.0 - 5.5 06/30/2011 Normal <sup>18</sup>Result Comment: Collection date/time has been modified to: 00:36:00. Previous collection date/time: 00:36:00. [facility] Eosinophils # 0.3 0.0 - 0.5 06/30/2011 Normal <sup>20</sup>Result Comment: Collection date/time has been modified to: 00:36:00. Previous collection date/time: 00:36:00. [facility] MPV 8.5 7.4 - 10.4 06/30/2011 Normal <sup>11</sup>Result Comment: Collection date/time has been modified to: 00:36:00. Previous collection date/time: 00:36:00. [facility] Platelet 417 133 - 450 06/30/2011 Normal <sup>10</sup>Result Comment: Collection date/time has been modified to: 00:36:00. Previous collection date/time: 00:36:00. [facility] RDW 19.1 11.5 - 14.5 06/30/2011 HI <sup>9</sup>Result Comment: Collection date/time has been modified to: 00:36:00. Previous collection date/time: 00:36:00. [facility] MCHC 31.9 32.0 - 36.0 06/30/2011 LOW <sup>8</sup>Result Comment: Collection date/time has been modified to: 00:36:00. Previous collection date/time: 00:36:00. [facility] MCV 65.3 81.0 - 99.0 06/30/2011 LOW <sup>6</sup>Result Comment: Collection date/time has been modified to: 00:36:00. Previous collection date/time: 00:36:00. [facility] Hct 28.2 36.0 - 48.0 06/30/2011 LOW <sup>5</sup>Result Comment: Collection date/time has been modified to: 00:36:00. Previous collection date/time: 00:36:00. [facility] MCH 20.8 27.0 - 31.0 06/30/2011 LOW <sup>7</sup>Result Comment: Collection date/time has been modified to: 00:36:00. Previous collection date/time: 00:36:00. [facility] RBC 4.32 4.20 - 5.40 06/30/2011 Normal <sup>3</sup>Result Comment: Collection date/time has been modified to: 00:36:00. Previous collection date/time: 00:36:00. [facility] Hgb 9.0 12.0 - 16.0 06/30/2011 LOW <sup>4</sup>Result Comment: Collection date/time has been modified to: 00:36:00. Previous collection date/time: 00:36:00. [facility] WBC 11.3 3.7 - 10.4 06/30/2011 HI <sup>2</sup>Result Comment: Collection date/time has been modified to: 00:36:00. Previous collection date/time: 00:36:00. [facility] URINALYSIS UA Bili Negative *NA* (06/30/2011 00:36:00) Negative 06/30/2011 NA [facility] URINALYSIS UA Nitrite Negative (06/30/2011 00:36:00) Negative 06/30/2011 Normal [facility] URINALYSIS UA Blood Negative (06/30/2011 00:36:00) Negative 06/30/2011 Normal [facility] URINALYSIS UA Urobilinogen 0.2 0.1 - 1.0 06/30/2011 Normal [facility] URINALYSIS UA Leuk Est Small *ABN* (06/30/2011 00:36:00) Negative 06/30/2011 ABN [facility] URINALYSIS UA Turbidity Cloudy *ABN* (06/30/2011 00:36:00) Clear 06/30/2011 ABN [facility] URINALYSIS UA pH 5.5 5.0 - 8.0 06/30/2011 Normal [facility] URINALYSIS UA Color Yellow *NA* (06/30/2011 00:36:00) Yellow 06/30/2011 NA [facility] URINALYSIS UA Protein Negative (06/30/2011 00:36:00) Negative 06/30/2011 Normal [facility] URINALYSIS UA Spec Grav >=1.030 *ABN* (06/30/2011 00:36:00) <=1.030 06/30/2011 ABN [facility] URINALYSIS UA Glucose Negative (06/30/2011 00:36:00) Negative 06/30/2011 Normal [facility] URINALYSIS UA Ketones Negative *NA* (06/30/2011 00:36:00) Negative 06/30/2011 NA [facility] URINALYSIS UA WBC 0-2 /HPF (06/30/2011 00:36:00) None Seen 06/30/2011 Normal [facility] URINALYSIS UA Bacteria Few /HPF (06/30/2011 00:36:00) None Seen 06/30/2011 Normal [facility] URINALYSIS UA RBC 0-2 /HPF (06/30/2011 00:36:00) 0 - 2 06/30/2011 Normal [facility] URINALYSIS Micro? Performed (06/30/2011 00:36:00) 06/30/2011 Normal [facility] URINALYSIS UA Sq Epi Many /LPF *ABN* (06/30/2011 00:36:00) Few 06/30/2011 ABN [facility] Pathology Reports No Data Provided for This Section Diagnostic Reports Report Value Date Source Chest Pulmonary Embolism CTA Clinical Indication: - DAFNE/chest pain with sob. Comparison: None. TECHNIQUE: Helical CT angiography of the chest was performed from the lung bases through the thoracic inlet following the administration of intravenous contrast. Axial, coronal, and sagittal multiplanar reconstructions provided. 3D post- processed reconstructions were generated on the scanner workstation and are also provided. . IV contrast: 75 cc Omnipaque. Dose: ZRB=088 mGy-cm FINDINGS: PULMONARY ARTERIES: No pulmonary emboli are identified to the segmental level. The pulmonary trunk, left, and right main pulmonary arteries are not enlarged. SYSTEMIC VESSELS: The thoracic aorta is normal in caliber without dissection or aneurysm. The great vessels appear unremarkable. HEART: There is no evidence of RV strain. The cardiac chambers are otherwise unremarkable. There is no pericardial effusion. LUNGS AND PLEURA: Lungs are adequately inflated with minimal bibasilar dependent subsegmental atelectasis. No confluent interstitial or alveolar airspace opacities. No worrisome pulmonary nodules. No pneumothorax or pleural effusion. The trachea and central airways are clear. MEDIASTINUM: No hilar or mediastinal adenopathy. VISUALIZED UPPER ABDOMEN: Unremarkable. OSSEOUS STRUCTURES: No acute abnormality seen. SOFT TISSUE: Unremarkable. IMPRESSION: 1. Negative for pulmonary embolus to the segmental level. 2. No other acute intrathoracic abnormality identified. SL: YAW 08/12/2017 [facility] Chest 2 views DX Study: Chest 2 views DX Clinical Indication: - chest pain Comparison: Chest x-ray from 12/23/2013 FINDINGS: The cardiac silhouette is normal in size. The lungs are clear and without consolidation or congestion. No pleural effusion or pneumothorax is seen. The osseous structures are unremarkable. IMPRESSION: No acute cardiopulmonary disease. SL: CHELI 08/12/2017 [facility] Chest 1view HISTORY: Chest pain. One view portable chest. Comparison 01/22/2013. Enlarged cardiac silhouette. Pulmonary vasculature appears congested. Pulmonary interstitial prominence likely edema. Consider volume overload CHF clinically. SL:13 12/23/2013 [facility] Cardiac SPECT multi studies NM Location: [facility] The patient exercised for 8 minutes and one seconds on Joseph protocol. The patient reached 86% of the target heart rate. Cardiolite was injected during peak stress as well as during rest. The myocardial perfusion was obtained using standard procedure. The myocardial perfusion was normal during both phases. No evidence of ischemia. Ejection fraction was 61 % with normal wall motion. Conclusion: Normal myocardial perfusion study. 01/23/2013 [facility] Chest 1view Portable chest: The cardiac silhouette and pulmonary vasculature are within normal limits. The lungs and pleural spaces are clear. There is no significant change compared to 07/02/2011. IMPRESSION: No acute radiographic abnormality in the chest. SL:13 01/23/2013 [facility] Consultation Notes No Data Provided for This Section Discharge Summaries No Data Provided for This Section History and Physicals No Data Provided for This Section Vital Signs Vital Sign Value Date Comments Source Systolic (mm Hg) 158 10/19/2018 [facility] Diastolic (mm Hg) 78 10/19/2018 [facility] Weight 116 10/19/2018 [facility] Temperature Oral (F) 98 F 10/19/2018 [facility] Respitory Rate 20 10/19/2018 [facility] Heart Rate 74 10/19/2018 [facility] Systolic (mm Hg) 177 10/19/2018 [facility] Diastolic (mm Hg) 107 10/19/2018 [facility] Respitory Rate 18 08/13/2017 [facility] Systolic (mm Hg) 125 08/13/2017 [facility] Diastolic (mm Hg) 83 08/13/2017 [facility] Heart Rate 73 08/13/2017 [facility] Systolic (mm Hg) 113 08/13/2017 [facility] Diastolic (mm Hg) 83 08/13/2017 [facility] Respitory Rate 18 08/13/2017 [facility] Heart Rate 71 08/13/2017 [facility] Temperature Oral (F) 97.7 F 08/13/2017 [facility] Respitory Rate 17 08/13/2017 [facility] Heart Rate 60 08/13/2017 [facility] Systolic (mm Hg) 105 08/13/2017 [facility] Diastolic (mm Hg) 71 08/13/2017 [facility] Weight 118.182 08/13/2017 [facility] Temperature Oral (F) 98.3 F 08/13/2017 [facility] Weight 104.545 12/23/2013 [facility] Height 165.1 cm 12/23/2013 [facility] BMI Calculated 38.35 12/23/2013 [facility] Diastolic (mm Hg) 87 12/23/2013 [facility] Systolic (mm Hg) 135 12/23/2013 [facility] Temperature Oral (F) 98.6 F 12/23/2013 [facility] Respitory Rate 18 12/23/2013 [facility] Heart Rate 91 12/23/2013 [facility] Weight 104.545 07/28/2013 [facility] Diastolic (mm Hg) 86 07/28/2013 [facility] Systolic (mm Hg) 128 07/28/2013 [facility] Temperature Oral (F) 97.7 F 07/28/2013 [facility] Heart Rate 78 07/28/2013 [facility] Rate 18 07/28/2013 [facility] Temperature Oral (F) 98 F 01/23/2013 [facility] Diastolic (mm Hg) 63 01/23/2013 [facility] Heart Rate 82 01/23/2013 [facility] Systolic (mm Hg) 93 01/23/2013 [facility] Respitory Rate 18 01/23/2013 [facility] Temperature Oral (F) 97.7 F 01/23/2013 [facility] Diastolic (mm Hg) 72 01/23/2013 [facility] Systolic (mm Hg) 122 01/23/2013 [facility] Respitory Rate 16 01/23/2013 [facility] Systolic (mm Hg) 118 01/23/2013 [facility]itory Rate 18 01/23/2013 [facility] Diastolic (mm Hg) 74 01/23/2013 [facility] Heart Rate 66 01/23/2013 [facility] Temperature Oral (F) 97.7 F 01/23/2013 [facility] Heart Rate 66 01/23/2013 [facility] Height 165.1 cm 01/23/2013 [facility] Height 165.1 cm 01/23/2013 [facility] Weight 110 01/23/2013 [facility] Height 165.10 cm 11/21/2011 [facility] Weight 104.545 11/21/2011 [facility] Temperature Oral (F) 97.1 F 06/30/2011 [facility] Diastolic (mm Hg) 69 06/30/2011 [facility] Respitory Rate 16 06/30/2011 [facility] Heart Rate 78 06/30/2011 [facility] Systolic (mm Hg) 127 06/30/2011 [facility] Height 167.64 cm 06/30/2011 [facility] Weight 118.182 06/30/2011 [facility] Temperature Oral (F) 98.0 F 06/30/2011 [facility] Heart Rate 99 06/30/2011 [facility] Respitory Rate 16 06/30/2011 [facility] Systolic (mm Hg) 138 06/30/2011 [facility] Diastolic (mm Hg) 78 06/30/2011 [facility] Encounters Location Location Details Encounter Type Encounter Number Reason For Visit Attending Provider ADM Date DC Date Status Source [facility] [id number] BRAULIO EUBANKSLAM 06/29/2011 06/30/2011 Discharged [facility] Emergency [id number] FOOT INJURY PAMELA JENNA 11/21/2011 11/21/2011 Active [facility] OU [id number] CHEST PAIN FELIPE JAVIER 01/22/2013 01/23/2013 Active [facility] [id number] _[id number] Jovi Bernardat 07/28/2013 07/28/2013 [facility] [id number] Lee Acevedo 12/23/2013 12/24/2013 [facility] Emergency [id number] Saeid Frederick 08/13/2017 08/13/2017 [facility] Emergency [id number] Bee Poeole 10/19/2018 10/19/2018 [facility] [place] [id number] 625.9 - FEM GENITAL SYM FAY KIMBERLY Cancel [place] Procedures No Data Provided for This Section Assessment and Plan No Data Provided for This Section Plan of Care No Data Provided for This Section Social History Social History Date Source Social History TypeResponse Smoking Status Current every day smoker; Type: Cigarettes; Previous treatment: None; Ready to change: No; Lives with someone who smokes; Cigarette Smoking Last 365 Days Yes; Reg Smoking Cessation Counseling Yes; Tobacco use per day: 2; Started at age: 12.0; entered on: 10/19/18 10/19/2018 [facility] Social History TypeResponse Smoking Status Current every day smoker; Type: Cigarettes; Previous treatment: None; Ready to change: No; Lives with someone who smokes; Cigarette Smoking Last 365 Days Yes; Reg Smoking Cessation Counseling Yes; Tobacco use per day: 2; Started at age: 12.0; entered on: 08/12/17 08/13/2017 [facility] Social History TypeResponse Smoking Status Current every day smoker, Type: Cigarettes, Previous treatment: None, Ready to change: No, Exposure to Tobacco Smoke Lives with someone who smokes, Cigarette Smoking Last 365 Days Yes, Reg Smoking Cessation Counseling Yes 07/28/2013 [facility] Family History No Data Provided for This Section Advance Directives No Data Provided for This Section Functional Status No Data Provided for This Section
--- OUTSIDE RECORDS SUMMARY | 2018-12-11 19:33 | XMS REPORT | CCD ---
Author Author Auto Generated Organization [facility] Address Unknown Phone Unavailable Care Team Providers Care Tankerman Name Role Phone Rafa Apodaca CP Allergies, Adverse Reactions, Alerts Substance Reaction Status NKDA Active Problem List Condition Effective Dates Status Melanoma Resolved Medications Medication Instructions Start Date End Date Status aspirin 81 mg, 1 tab, Route: PO, Drug form: 01/24/2013 01/23/2013 Canceled ECTAB, Daily, Dosing Weight 110, kg, Start date: 01/24/13 9:00:00, Duration: 30 day, Stop date: 02/22/13 9:00:00 pravastatin 40 mg, 2 tab, Route: PO, Drug form: 01/24/2013 01/23/2013 Canceled TAB, Daily, Dosing Weight 110, kg, Start date: 01/24/13 9:00:00, Duration: 30 day, Stop date: 02/22/13 9:00:00 simvastatin 20 mg, 1 tab, Route: PO, Drug form: 01/23/2013 01/23/2013 Completed TAB, ONCE, Dosing Weight 110, kg, Start date: 01/23/13 3:42:00, Stop date: 01/23/13 3:42:00 simvastatin 20 mg, 1 tab, Route: PO, Drug form: 01/23/2013 01/23/2013 Canceled TAB, Bedtime, Dosing Weight 110, kg, Start date: 01/23/13 21:00:00, Duration: 30 day, Stop date: 02/21/13 21:00:00 NS 0.45% IV 1,000 mL 1,000 mL, Rate: 125 ml/hr, Infuse 01/23/2013 01/23/2013 Discontinued over: 8 hr, Route: IV, Dosing Weight 110 kg, Total Volume: 1,000, Start date: 01/23/13 5:21:00, Duration: 1 day, Stop date: 01/24/13 5:20:00 morphine Sulfate 2 mg, 1 mL, Route: IVP, Drug form: 01/23/2013 01/23/2013 Discontinued INJ, Q2H, Dosing Weight 110, kg, PRN Chest Pain, Start date: 01/23/13 3:40:00, Duration: 30 day, Stop date: 02/22/13 3:39:00 lisinopril 2.5 mg, 0.5 tab, Route: PO, Drug 01/23/2013 01/23/2013 Discontinued form: TAB, Daily, Dosing Weight 110, kg, Start date: 01/23/13 9:00:00, Duration: 30 day, Stop date: 02/21/13 9:00:00 acetaminophen 650 mg, 2 tab, Route: PO, Drug 01/23/2013 01/23/2013 Discontinued form: TAB, Q6H, Dosing Weight 110, kg, PRN Pain, Start date: 01/23/13 3:40:00, Duration: 30 day, Stop date: 02/22/13 3:39:00 Zofran 4 mg, 2 mL, Route: IV, Drug form: 01/23/2013 01/23/2013 Discontinued INJ, Q4H, Dosing Weight 110, kg, PRN as needed for nausea/vomiting, Start date: 01/23/13 3:40:00, Duration: 30 day, Stop date: 02/22/13 3:39:00 pantoprazole 40 mg, Route: IVP, Drug form: INJ, 01/23/2013 01/23/2013 Discontinued Daily, Dosing Weight 110, kg, Priority: Routine, Start date: 01/23/13 9:00:00, Duration: 30 day, Stop date: 02/21/13 9:00:00 Saline Flush 0.9% 5 mL, Route: IVP, Drug Form: INJ, 01/22/2013 01/23/2013 Discontinued Dosing Weight 104.545, kg, Q8H, PRN Line Flush, Start date: 01/22/13 23:49:00, Duration: 30 day, Stop date: 02/21/13 23:48:00, Administer at least once every 8 hours Administer at least once every 8 hours pravastatin 40 mg 40 mg, 1 tab, PO, Daily, 30 tab, 01/23/2013 Ordered oral tablet Substitution Allowed, TAB Aspirin Low Dose 81 81 mg, 1 tab, PO, Daily, 30 tab, 01/23/2013 Ordered mg oral tablet Substitution Allowed Aspirin Low Dose 81 81 mg, 1 tab, PO, Daily, 30 tab, 01/23/2013 01/23/2013 Discontinued mg oral tablet Substitution Allowed pravastatin 40 mg 40 mg, 1 tab, PO, Daily, 30 tab, 01/23/2013 01/23/2013 Discontinued oral tablet Substitution Allowed, TAB atropine 0.5 mg, 5 mL, Route: IVP, Drug 01/23/2013 01/23/2013 Discontinued form: INJ, PRN, PRN Bradycardia, Start date: 01/23/13 2:13:00, Duration: 30 day, Stop date: 02/22/13 2:12:00 ketorolac 30 mg/mL 30 mg, 1 mL, Route: IV, Drug form: 01/23/2013 01/23/2013 Completed injectable solution INJ, ONCE, Dosing Weight 104.545, kg, Start date: 01/23/13 1:41:00, Stop date: 01/23/13 1:41:00 Saline Flush 0.9% 5 ml, Route: IVP, Drug Form: INJ, 01/23/2013 01/23/2013 Discontinued Dosing Weight 104.545, kg, PRN, PRN Line Flush, Start date: 01/23/13 2:09:00, Duration: 30 day, Stop date: 02/22/13 2:08:00 Saline Flush 0.9% 5 ml, Route: IVP, Drug Form: INJ, 01/23/2013 01/23/2013 Discontinued Dosing Weight 104.545, kg, Q12H, Start date: 01/23/13 9:00:00, Duration: 30 day, Stop date: 02/21/13 21:00:00 nitroglycerin 2% 0.5 inch, Route: TOP, Drug Form: 01/23/2013 01/23/2013 Discontinued ointment OINT, Dosing Weight 104.545, kg, TID, Start date: 01/23/13 6:00:00, Duration: 30 day, Stop date: 02/21/13 18:00:00 nitroglycerin SL Tab 0.4 mg, 1 tab, Route: SL, Drug 01/23/2013 01/23/2013 Discontinued form: TAB, Q5Min, Dosing Weight 104.545, kg, PRN Chest Pain, Start date: 01/23/13 2:09:00, Duration: 3 doses or times, Stop date: Limited # of times aspirin 324 mg, 4 tab, Route: PO, Drug 01/23/2013 01/23/2013 Completed form: CHEWTAB, ONCE, Dosing Weight 104.545, kg, Start date: 01/23/13 2:09:00, Stop date: 01/23/13 2:09:00 Vital Signs Most recent to oldest [Reference Range]: 1 2 3 Height 165.1 cm (01/23/2013 05:34:00) 165.1 cm (01/23/2013 02:11:00) Current Weight 110.994 kg (01/23/2013 05:34:00) Temperature Oral [96.4-99.1 DegF] 98 DegF (01/23/2013 12:45:00) 97.7 DegF (01/23/2013 12:20:00) 97.7 DegF (01/23/2013 09:10:00) Systolic Blood Pressure [90-140 mmHg] 93 mmHg (01/23/2013 12:45:00) 122 mmHg (01/23/2013 12:20:00) 118 mmHg (01/23/2013 09:10:00) Diastolic Blood Pressure [60-90 mmHg] 63 mmHg (01/23/2013 12:45:00) 72 mmHg (01/23/2013 12:20:00) 74 mmHg (01/23/2013 09:10:00) Respiratory Rate [14-20 BRMIN] 18 BRMIN (01/23/2013 12:45:00) 16 BRMIN (01/23/2013 12:20:00) 18 BRMIN (01/23/2013 09:10:00) Peripheral Pulse Rate [60-100 bpm] 82 bpm (01/23/2013 12:45:00) 66 bpm (01/23/2013 09:10:00) 66 bpm (01/23/2013 07:41:00) Weight 110 kg (01/23/2013 02:11:00) Results CHEMISTRY Most recent to oldest [Reference Range]: 1 2 3 Sodium Lvl [135-145 mEq/L] 145 mEq/L (01/23/2013 06:37:00) 146 mEq/L *HI* (01/23/2013 00:05:00) Potassium Lvl [3.5-5.1 mEq/L] 3.8 mEq/L (01/23/2013 06:37:00) 3.5 mEq/L (01/23/2013 00:05:00) Chloride Lvl [95-109 mEq/L] 111 mEq/L *HI* (01/23/2013 06:37:00) 108 mEq/L (01/23/2013 00:05:00) CO2 [24-32 mEq/L] 26 mEq/L (01/23/2013 06:37:00) 31 mEq/L (01/23/2013 00:05:00) AGAP [10.0-20.0 mEq/L] 11.8 mEq/L (01/23/2013 06:37:00) 10.5 mEq/L (01/23/2013 00:05:00) Creatinine Lvl [0.5-1.4 mg/dL] 0.6 mg/dL (01/23/2013 06:37:00) 0.8 mg/dL (01/23/2013 00:05:00) eGFR 120 mL/min/1.73m2 1 *NA* (01/23/2013 06:37:00) 97 mL/min/1.73m2 2 *NA* (01/23/2013 00:05:00) BUN [7-22 mg/dL] 16 mg/dL (01/23/2013 06:37:00) 13 mg/dL (01/23/2013 00:05:00) B/C Ratio [6-25] 16 (01/23/2013 00:05:00) Glucose Lvl [70-99 mg/dL] 90 mg/dL 3 (01/23/2013 06:37:00) 90 mg/dL 4 (01/23/2013 00:05:00) Total Protein [6.4-8.4 g/dL] 6.5 g/dL (01/23/2013 06:37:00) 7.1 g/dL (01/23/2013 00:05:00) Albumin Lvl [3.5-5.0 g/dL] 3.0 g/dL *LOW* (01/23/2013 06:37:00) 3.0 g/dL *LOW* (01/23/2013 00:05:00) Globulin [2.0-4.0 g/dL] 3.5 g/dL (01/23/2013 06:37:00) 4.1 g/dL *HI* (01/23/2013 00:05:00) A/G Ratio [0.7-1.6] 0.9 (01/23/2013 06:37:00) 0.7 (01/23/2013 00:05:00) Calcium Lvl [8.5-10.5 mg/dL] 8.7 mg/dL (01/23/2013 06:37:00) 8.6 mg/dL (01/23/2013 00:05:00) Phosphorus [2.5-4.5 mg/dL] 3.5 mg/dL (01/23/2013 06:37:00) Magnesium Lvl [1.8-2.4 mg/dL] 1.9 mg/dL (01/23/2013 06:37:00) 1.9 mg/dL (01/23/2013 00:05:00) ALT [0-65 unit/L] 15 unit/L (01/23/2013 06:37:00) 15 unit/L (01/23/2013 00:05:00) AST [0-37 unit/L] 5 unit/L (01/23/2013 06:37:00) 7 unit/L (01/23/2013 00:05:00) Alk Phos [39-136 unit/L] 82 unit/L (01/23/2013 06:37:00) 85 unit/L (01/23/2013 00:05:00) Bili Total [0.2-1.3 mg/dL] 0.2 mg/dL (01/23/2013 06:37:00) 0.2 mg/dL (01/23/2013 00:05:00) Bili Direct [0.0-0.3 mg/dL] <0.1 mg/dL (01/23/2013 06:37:00) Bili Indirect [0.0-1.0 mg/dL] >0.1 mg/dL (01/23/2013 06:37:00) Total CK [12-191 unit/L] 38 unit/L (01/23/2013 12:47:00) 34 unit/L (01/23/2013:37:00) 37 unit/L (01/23/2013 00:05:00) CK MB [0.5-3.6 ng/mL] <0.5 ng/mL (01/23/2013 00:05:00) CK MB Index [0.0-2.5] <1.4 (01/23/2013 00:05:00) Troponin-I [0.00-0.40 ng/mL] <0.02 ng/mL (01/23/2013 12:47:00) <0.02 ng/mL (01/23/2013:37:00) <0.02 ng/mL (01/23/2013 00:05:00) BNP [<=100 pg/mL] 21 pg/mL 5 (01/23/2013 00:05:00) CHD Risk [3.90-5.80] 7.93 *HI* (01/23/2013 06:37:00) Chol [<=199 mg/dL] 214 mg/dL *HI* (01/23/2013:37:00) Trig [<=149 mg/dL] 225 mg/dL *HI* (01/23/2013 06:37:00) HDL [>=61 mg/dL] 27 mg/dL *LOW* (01/23/2013:37:00) LDL [<=99 mg/dL] 142 mg/dL *HI* (01/23/2013:37:00) S Preg [Negative] Negative *NA* (01/23/2013 00:05:00) 1Result Comment: The eGFR is calculated using the [...] from the National Kidney Disease Education Program ( NKDEP) which additionally recommends that when the eGFR is used in patients with extremes of body mass index for purposes of drug dosing, the eGFR should be mul tiplied by the estimated BMI. 2Result Comment: The eGFR is calculated using the [...] from the National Kidney Disease Education Program ( NKDEP) which additionally recommends that when the eGFR is used in patients with extremes of body mass index for purposes of drug dosing, the eGFR should be mul tiplied by the estimated BMI. 3Interpretive Data: Adult reference range values reflect the clinical guidelines of the [place] [employer]. 4Interpretive Data: Adult reference range values reflect the clinical guidelines of the [place] [employer]. 5Interpretive Data: Elevated results are in line with increasing severity of congestive heart failure. Minor elevations between 100 and 300 may be seen with Myocardial Ischemia, Sodium retaining drugs, and compensated/treated heart failure. HEMATOLOGY Most recent to oldest [Reference Range]: 1 2 3 WBC [3.7-10.4 K/CMM] 8.5 K/CMM (01/23/2013 06:37:00) 8.1 K/CMM (01/23/2013 00:05:00) RBC [4.20-5.40 M/CMM] 4.25 M/CMM (01/23/2013 06:37:00) 4.49 M/CMM (01/23/2013 00:05:00) Hgb [12.0-16.0 g/dL] 10.6 g/dL *LOW* (01/23/2013 06:37:00) 11.3 g/dL *LOW* (01/23/2013 00:05:00) Hct [36.0-48.0 %] 33.2 % *LOW* (01/23/2013 06:37:00) 35.1 % *LOW* (01/23/2013 00:05:00) MCV [81.0-99.0 fL] 78.1 fL *LOW* (01/23/2013 06:37:00) 78.1 fL *LOW* (01/23/2013 00:05:00) MCH [27.0-31.0 pg] 25.0 pg *LOW* (01/23/2013 06:37:00) 25.2 pg *LOW* (01/23/2013 00:05:00) MCHC [32.0-36.0 g/dL] 32.0 g/dL (01/23/2013 06:37:00) 32.3 g/dL (01/23/2013 00:05:00) RDW [11.5-14.5 %] 17.4 % *HI* (01/23/2013 06:37:00) 17.6 % *HI* (01/23/2013 00:05:00) Platelet [133-450 K/CMM] 307 K/CMM (01/23/2013 06:37:00) 329 K/CMM (01/23/2013 00:05:00) MPV [7.4-10.4 fL] 8.4 fL (01/23/2013 06:37:00) 8.5 fL (01/23/2013 00:05:00) Segs [45.0-75.0 %] 62.2 % (01/23/2013 06:37:00) 69.4 % (01/23/2013 00:05:00) Lymphocytes [20.0-40.0 %] 30.1 % (01/23/2013 06:37:00) 25.1 % (01/23/2013 00:05:00) Monocytes [2.0-12.0 %] 5.4 % (01/23/2013 06:37:00) 3.7 % (01/23/2013 00:05:00) Eosinophils [0.0-4.0 %] 1.6 % (01/23/2013 06:37:00) 1.8 % (01/23/2013 00:05:00) Basophils [0.0-1.0 %] 0.7 % (01/23/2013 06:37:00) 0.0 % (01/23/2013 00:05:00) Segs-Bands # [1.5-8.1 K/CMM] 5.3 K/CMM (01/23/2013 06:37:00) 5.6 K/CMM (01/23/2013 00:05:00) Lymphocytes # [1.0-5.5 K/CMM] 2.6 K/CMM (01/23/2013 06:37:00) 2.0 K/CMM (01/23/2013 00:05:00) Monocytes # [0.0-0.8 K/CMM] 0.5 K/CMM (01/23/2013 06:37:00) 0.3 K/CMM (01/23/2013 00:05:00) Eosinophils # [0.0-0.5 K/CMM] 0.1 K/CMM (01/23/2013 06:37:00) 0.1 K/CMM (01/23/2013 00:05:00) Basophils # [0.0-0.2 K/CMM] 0.1 K/CMM (01/23/2013 06:37:00) 0.0 K/CMM (01/23/2013 00:05:00) PT [12.0-14.7 seconds] 13.1 seconds (01/23/2013 06:37:00) 13.0 seconds (01/23/2013 00:05:00) INR [0.85-1.17] 1.00 6 (01/23/2013 06:37:00) 0.99 7 (01/23/2013 00:05:00) D-Dimer 0.31 ug/mL FEU 8 *NA* (01/23/2013 00:05:00) PTT [22.9-35.8 seconds] 29.0 seconds 9 (01/23/2013 06:37:00) 29.2 seconds 10 (01/23/2013 00:05:00) 6Interpretive Data: RECOMMENDED RANGES FOR PROTIME INR: 2.0-3.0 for most medical and surgical thromboembolic states. 2.5-3.5 for artificial heart valves and recurrent embolism. INR SHOULD BE USED ONLY FOR PATIENTS ON STABLE ANTICOAGULANT THERAPY. 7Interpretive Data: RECOMMENDED RANGES FOR PROTIME INR: 2.0-3.0 for most medical and surgical thromboembolic states. 2.5-3.5 for artificial heart valves and recurrent embolism. INR SHOULD BE USED ONLY FOR PATIENTS ON STABLE ANTICOAGULANT THERAPY. 8Interpretive Data: In DIC, quantitative D-Dimer is generally greater than 0.66 ug/mL FEU. Values of quantitative D-Dimer less than 0.40 ug/mL FEU have been reported to be associated with a low probability of deep vein thrombosis/pulmonary embolism. This test alone should not be used to rule out DVT/PE. 9Interpretive Data: Heparin Therapeutic Range: 57 - 92 Seconds 10Interpretive Data: Heparin Therapeutic Range: 57 - 92 Seconds
--- OUTSIDE RECORDS SUMMARY | 2018-12-11 19:33 | XMS REPORT | Summary of Care ---
Author Organization Unknown Address Unknown Phone Unavailable Encounter Dates Location Diagnoses Discharge Providers Disposition 07/27/2013 [facility] Non-Emergent [facility] 07/27/2013 [address] [place], [place] [id number] [place] [address] Reason for Visit NECK PAIN, HEAD PAIN Vital Signs Most recent to 1 oldest [Reference Range]: Temperature Oral 97.7 DegF [96.4-99.1 DegF] (07/27/2013 21:33:00 [place] Systolic Blood 128 mmHg Pressure [90-140 (07/27/2013 21:33:00 [place]) mmHg] Diastolic Blood 86 mmHg Pressure [60-90 (07/27/2013 21:33:00 [place] mmHg] Respiratory Rate 18 BRMIN [14-20 BRMIN] (07/27/2013 21:33:00 [place] Peripheral Pulse 78 bpm Rate [60-100 bpm] (07/27/2013 21:33:00 [place] Weight 104.545 kg (07/27/2013 21:33:00 [place] Problem List Condition Effective Dates Status Health Status Informant Melanoma(Confirmed) Resolved Allergies, Adverse Reactions, Alerts Status Substance Reaction Severity Active NKDA Medications No data available for this section Medications Administered During Your Visit No data available for this section Immunizations No data available for this section Social History Social History Type Response Smoking Status Use: Current every day smoker. Type: Cigarettes. 1.5 per day. Started age 12.0 Years. Previous treatment: None. Ready to change: No. Tobacco smoke exposure: Lives with someone who smokes. Did the Patient Smoke Cigarettes Anytime During the Last 365 Days? Yes. Cessation Counseling Provided? Yes.
--- OUTSIDE RECORDS SUMMARY | 2018-12-11 19:33 | XMS REPORT | CCD ---
Author Author Auto Generated Organization [facility] Address Unknown Phone Unavailable Care Team Providers Care Donor Relations Officer Name Role Phone Marilyn Martinez CP Allergies, Adverse Reactions, Alerts Substance Reaction Status NKDA Active Medications Medication Instructions Start Date End Date Status Zofran 4 mg, Route: IVP, ONCE, Priority: 06/29/2011 06/30/2011 Completed STAT, Start date: 06/29/11 23:49:00, Stop date: 06/29/11 23:49:00 Sodium Chloride 0.9% 1,000 mL, Rate: 1,000 ml/hr, Infuse 06/29/2011 06/30/2011 Completed (Bolus) IV 1000 mL over: 1 hr, Route: IV, Total Volume: 1,000, Priority: STAT, Start date: 06/29/11 23:49:00, Duration: 1 doses or times, Stop date: 06/30/11 0:48:00, Bolus Dose Bolus Dose morphine Sulfate 4 mg, Route: IVP, ONCE, Priority: 06/29/2011 06/30/2011 Completed STAT, Start date: 06/29/11 23:49:00, Stop date: 06/29/11 23:49:00 Cipro I.V. 400 400 mg, Route: IVPB, ONCE, Start 06/29/2011 06/30/2011 Completed mg/200 mL date: 06/29/11 23:49:00, Stop date: intravenous solution 06/29/11 23:49:00 morphine Sulfate 4 mg, Route: IVP, ONCE, Priority: 06/30/2011 06/30/2011 Completed STAT, Start date: 06/30/11 1:38:00, Stop date: 06/30/11 1:38:00 ferrous sulfate 325 325 mg, 1 tab, PO, Daily, 30 tab, 06/30/2011 Ordered mg oral enteric Substitution Allowed, ECTAB coated tablet Naprosyn 500 mg oral 500 mg, 1 tab, PO, BID, 14 tab, 06/30/2011 Ordered tablet Substitution Allowed, TAB Cipro 500 mg oral 500 mg, 1 tab, PO, BID, 6 tab, 06/30/2011 Ordered tablet Substitution Allowed acetaminophen-hydroc 1-2 tab, PO, Q4-6H, PRN, 15 tab, 06/30/2011 Ordered odone 500 mg-5 mg Pain, Substitution Allowed, oral tablet Maintenance Flexeril 10 mg oral 10 mg, 1 tab, PO, TID, PRN, 15 tab, 06/30/2011 Ordered tablet for spasm, Substitution Allowed, TAB Flexeril 10 mg, 1 tab, Route: PO, Drug form: 06/30/2011 06/30/2011 Completed TAB, ONCE, PRN Spasm, Start date: 06/30/11 3:15:00 Toradol 30 mg/mL 30 mg, 1 mL, Route: IV, Drug form: 06/30/2011 06/30/2011 Completed injectable solution INJ, ONCE, Start date: 06/30/11 3:15:00, Stop date: 06/30/11 3:15:00 acetaminophen-hydroc 1 tab, Route: PO, Drug Form: TAB, 06/30/2011 06/30/2011 Completed odone 325 mg-5 mg ONCE, STAT, Start date: 06/30/11 oral tablet 3:15:00, Stop date: 06/30/11 3:15:00 Vital Signs Most recent to oldest [Reference Range]: 1 2 Height 167.64 cm (06/29/2011 23:10:00) Temperature Oral [96.4-99.1 DegF] 97.1 DegF (06/30/2011 03:45:00) 98.0 DegF (06/29/2011 23:10:00) Systolic Blood Pressure [90-140 mmHg] 127 mmHg (06/30/2011 03:45:00) 138 mmHg (06/29/2011 23:10:00) Diastolic Blood Pressure [60-90 mmHg] 69 mmHg (06/30/2011 03:45:00) 78 mmHg (06/29/2011 23:10:00) Respiratory Rate [14-20 BRMIN] 16 BRMIN (06/30/2011 03:45:00) 16 BRMIN (06/29/2011 23:10:00) Peripheral Pulse Rate [60-100 bpm] 78 bpm (06/30/2011 03:45:00) 99 bpm (06/29/2011 23:10:00) Weight 118.182 kg (06/29/2011 23:10:00) Results URINALYSIS Most recent to oldest [Reference Range]: 1 UA Turbidity [Clear] Cloudy *ABN* (06/30/2011 00:36:00) UA Color [Yellow] Yellow *NA* (06/30/2011 00:36:00) UA pH [5.0-8.0] 5.5 (06/30/2011 00:36:00) UA Spec Grav [<=1.030] >=1.030 *ABN* (06/30/2011 00:36:00) UA Glucose [Negative] Negative (06/30/2011 00:36:00) UA Blood [Negative] Negative (06/30/2011 00:36:00) UA Ketones [Negative] Negative *NA* (06/30/2011 00:36:00) UA Protein [Negative] Negative (06/30/2011 00:36:00) UA Urobilinogen [0.1-1.0 EU/dL] 0.2 EU/dL (06/30/2011 00:36:00) UA Bili [Negative] Negative *NA* (06/30/2011 00:36:00) UA Leuk Est [Negative] Small *ABN* (06/30/2011 00:36:00) UA Nitrite [Negative] Negative (06/30/2011 00:36:00) UA WBC [None Seen /HPF] 0-2 /HPF (06/30/2011 00:36:00) UA RBC [0-2 /HPF] 0-2 /HPF (06/30/2011 00:36:00) UA Bacteria [None Seen /HPF] Few /HPF (06/30/2011 00:36:00) UA Sq Epi [Few /LPF] Many /LPF *ABN* (06/30/2011 00:36:00) Micro? Performed (06/30/2011 00:36:00) CHEMISTRY Most recent to oldest [Reference Range]: 1 Sodium Lvl [135-145 mEq/L] 142 mEq/L (06/30/2011 00:36:00) Potassium Lvl [3.5-5.1 mEq/L] 3.5 mEq/L (06/30/2011 00:36:00) Chloride Lvl [95-109 mEq/L] 110 mEq/L *HI* (06/30/2011 00:36:00) CO2 [24-32 mEq/L] 25 mEq/L (06/30/2011 00:36:00) AGAP [10.0-20.0 mEq/L] 10.5 mEq/L (06/30/2011 00:36:00) Creatinine Lvl [0.5-1.4 mg/dL] 0.7 mg/dL (06/30/2011 00:36:00) BUN [7-22 mg/dL] 16 mg/dL (06/30/2011 00:36:00) B/C Ratio [6-25] 23 (06/30/2011 00:36:00) Glucose Lvl 93 mg/dL 1 *NA* (06/30/2011 00:36:00) Total Protein [6.4-8.4 g/dL] 7.8 g/dL (06/30/2011 00:36:00) Albumin Lvl [3.5-5.0 g/dL] 3.3 g/dL *LOW* (06/30/2011 00:36:00) Globulin [2.0-4.0 g/dL] 4.5 g/dL *HI* (06/30/2011 00:36:00) A/G Ratio [0.7-1.6] 0.7 (06/30/2011 00:36:00) Calcium Lvl [8.5-10.5 mg/dL] 8.5 mg/dL (06/30/2011 00:36:00) ALT [0-65 U/L] 15 U/L (06/30/2011 00:36:00) AST [0-37 U/L] 8 U/L (06/30/2011 00:36:00) Alk Phos [39-136 U/L] 66 U/L (06/30/2011 00:36:00) Bili Total [0.2-1.3 mg/dL] 0.2 mg/dL (06/30/2011 00:36:00) U Preg [Negative] Negative (06/30/2011 00:36:00) 1Interpretive Data: Reference Ranges : 0 - 7 days : 41 - 90 mg/dL7 days - 150 yrs : 70 - 99 mg/dL (fasting), based on the clinical recommendations of the [place] [employer]. HEMATOLOGY Most recent to oldest [Reference Range]: 1 WBC [3.7-10.4 K/CMM] 11.3 K/CMM 2 *HI* (06/30/2011 00:36:00) RBC [4.20-5.40 M/CMM] 4.32 M/CMM 3 (06/30/2011 00:36:00) Hgb [12.0-16.0 g/dL] 9.0 g/dL 4 *LOW* (06/30/2011 00:36:00) Hct [36.0-48.0 %] 28.2 % 5 *LOW* (06/30/2011 00:36:00) MCV [81.0-99.0 fL] 65.3 fL 6 *LOW* (06/30/2011 00:36:00) MCH [27.0-31.0 pg] 20.8 pg 7 *LOW* (06/30/2011 00:36:00) MCHC [32.0-36.0 g/dL] 31.9 g/dL 8 *LOW* (06/30/2011 00:36:00) RDW [11.5-14.5 %] 19.1 % 9 *HI* (06/30/2011 00:36:00) Platelet [133-450 K/CMM] 417 K/CMM 10 (06/30/2011 00:36:00) MPV [7.4-10.4 fL] 8.5 fL 11 (06/30/2011 00:36:00) Segs [45.0-75.0 %] 67.3 % 12 (06/30/2011 00:36:00) Lymphocytes [20.0-40.0 %] 23.5 % 13 (06/30/2011 00:36:00) Monocytes [2.0-12.0 %] 6.4 % 14 (06/30/2011 00:36:00) Eosinophils [0.0-4.0 %] 2.3 % 15 (06/30/2011 00:36:00) Basophils [0.0-1.0 %] 0.5 % 16 (06/30/2011 00:36:00) Segs-Bands # [1.5-8.1 K/CMM] 7.6 K/CMM 17 (06/30/2011 00:36:00) Lymphocytes # [1.0-5.5 K/CMM] 2.7 K/CMM 18 (06/30/2011 00:36:00) Monocytes # [0.0-0.8 K/CMM] 0.7 K/CMM 19 (06/30/2011 00:36:00) Eosinophils # [0.0-0.5 K/CMM] 0.3 K/CMM 20 (06/30/2011 00:36:00) Basophils # [0.0-0.2 K/CMM] 0.1 K/CMM 21 (06/30/2011 00:36:00) RBC Morph See Note 22 (06/30/2011 00:36:00) Polychrom [None Seen] Slight 23 (06/30/2011 00:36:00) Hypochrom [None Seen] Slight 24 (06/30/2011 00:36:00) Microcyte [None Seen] 1+ 25 *ABN* (06/30/2011 00:36:00) Elliptocyte [None Seen] Slight 26 *ABN* (06/30/2011 00:36:00) Plt Morph Normal 27 (06/30/2011 00:36:00) 2Result Comment: Collection date/time has been modified to: 00:36:00. Previous collection date/time: 00:36:00. 3Result Comment: Collection date/time has been modified to: 00:36:00. Previous collection date/time: 00:36:00. 4Result Comment: Collection date/time has been modified to: 00:36:00. Previous collection date/time: 00:36:00. 5Result Comment: Collection date/time has been modified to: 00:36:00. Previous collection date/time: 00:36:00. 6Result Comment: Collection date/time has been modified to: 00:36:00. Previous collection date/time: 00:36:00. 7Result Comment: Collection date/time has been modified to: 00:36:00. Previous collection date/time: 00:36:00. 8Result Comment: Collection date/time has been modified to: 00:36:00. Previous collection date/time: 00:36:00. 9Result Comment: Collection date/time has been modified to: 00:36:00. Previous collection date/time: 00:36:00. 10Result Comment: Collection date/time has been modified to: 00:36:00. Previous collection date/time: 00:36:00. 11Result Comment: Collection date/time has been modified to: 00:36:00. Previous collection date/time: 00:36:00. 12Result Comment: Collection date/time has been modified to: 00:36:00. Previous collection date/time: 00:36:00. 13Result Comment: Collection date/time has been modified to: 00:36:00. Previous collection date/time: 00:36:00. 14Result Comment: Collection date/time has been modified to: 00:36:00. Previous collection date/time: 00:36:00. 15Result Comment: Collection date/time has been modified to: 00:36:00. Previous collection date/time: 00:36:00. 16Result Comment: Collection date/time has been modified to: 00:36:00. Previous collection date/time: 00:36:00. 17Result Comment: Collection date/time has been modified to: 00:36:00. Previous collection date/time: 00:36:00. 18Result Comment: Collection date/time has been modified to: 00:36:00. Previous collection date/time: 00:36:00. 19Result Comment: Collection date/time has been modified to: 00:36:00. Previous collection date/time: 00:36:00. 20Result Comment: Collection date/time has been modified to: 00:36:00. Previous collection date/time: 00:36:00. 21Result Comment: Collection date/time has been modified to: 00:36:00. Previous collection date/time: 00:36:00. 22Result Comment: Collection date/time has been modified to: 00:36:00. Previous collection date/time: 00:36:00. 23Result Comment: Collection date/time has been modified to: 00:36:00. Previous collection date/time: 00:36:00. 24Result Comment: Collection date/time has been modified to: 00:36:00. Previous collection date/time: 00:36:00. 25Result Comment: Collection date/time has been modified to: 00:36:00. Previous collection date/time: 00:36:00. 26Result Comment: Collection date/time has been modified to: 00:36:00. Previous collection date/time: 00:36:00. 27Result Comment: Collection date/time has been modified to: 00:36:00. Previous collection date/time: 00:36:00.
--- OUTSIDE RECORDS SUMMARY | 2018-12-11 19:33 | XMS REPORT | Summary of Care ---
Author Organization Unknown Address Unknown Phone Unavailable Encounter RENE Francis(MARIA DEL ROSARIO) [id number] Date(s): 12/23/13 - 12/23/13 [facility] [address] [place] Discharge Disposition: Against Medical Advise Physician Attending: Lee Acevedo MD Reason for Visit CHEST PAIN Vital Signs Most recent to 1 oldest [Reference Range]: Height 165.1 cm (12/23/13 6:00 PM) Temperature Oral 98.6 DegF [96.4-99.1 DegF] (12/23/13 6:00 PM) Systolic Blood 135 mmHg Pressure [90-140 (12/23/13 6:00 PM) mmHg] Diastolic Blood 87 mmHg Pressure [60-90 (12/23/13 6:00 PM) mmHg] Respiratory Rate 18 BRMIN [14-20 BRMIN] (12/23/13 6:00 PM) Peripheral Pulse 91 bpm Rate [60-100 bpm] (12/23/13 6:00 PM) Weight 104.545 kg (12/23/13 6:00 PM) Body Mass Index 38.35 m2 (12/23/13 6:00 PM) Problem List Condition Effective Dates Status Health Status Informant Melanoma(Confirmed) Resolved Allergies, Adverse Reactions, Alerts Substance Reaction Severity Status NKDA Active Medications No data available for this section Results ELECTROLYTES Most recent to 1 oldest [Reference Range]: Sodium Lvl [135-145 141 mEq/L mEq/L] (12/23/13 7:20 PM) Potassium Lvl 3.6 mEq/L [3.5-5.1 mEq/L] (12/23/13 7:20 PM) Chloride Lvl [95-109 108 mEq/L mEq/L] (12/23/13 7:20 PM) CO2 [24-32 mEq/L] 28 mEq/L (12/23/13 7:20 PM) AGAP [10.0-20.0 8.6 mEq/L mEq/L] *LOW* (12/23/13 7:20 PM) CHEM PANEL Most recent to 1 oldest [Reference Range]: Creatinine Lvl 0.7 mg/dL [0.5-1.4 mg/dL] (12/23/13 7:20 PM) eGFR 113 mL/min/1.73m2 1 *NA* (12/23/13 7:20 PM) BUN [7-22 mg/dL] 14 mg/dL (12/23/13 7:20 PM) B/C Ratio [6-25] 20 (12/23/13 7:20 PM) Glucose Lvl [70-99 90 mg/dL 2 mg/dL] (12/23/13 7:20 PM) Total Protein 6.8 g/dL [6.4-8.4 g/dL] (12/23/13 7:20 PM) Albumin Lvl [3.5-5.0 2.9 g/dL g/dL] *LOW* (12/23/13 7:20 PM) Globulin [2.0-4.0 3.9 g/dL g/dL] (12/23/13 7:20 PM) A/G Ratio [0.7-1.6] 0.7 (12/23/13 7:20 PM) Calcium Lvl 8.8 mg/dL [8.5-10.5 mg/dL] (12/23/13 7:20 PM) ALT [0-65 unit/L] 19 unit/L (12/23/13 7:20 PM) AST [0-37 unit/L] 10 unit/L (12/23/13 7:20 PM) Alk Phos [39-136 81 unit/L unit/L] (12/23/13 7:20 PM) Bili Total [0.2-1.3 0.2 mg/dL mg/dL] (12/23/13 7:20 PM) Lipase Lvl [73-393 140 unit/L unit/L] (12/23/13 7:20 PM) 1Result Comment: The eGFR is calculated using [...] be mul tiplied by the estimated BMI. 2Interpretive Data: Adult reference range values reflect the clinical guidelines of the [place] [employer]. CARDIAC ENZYMES Most recent to 1 oldest [Reference Range]: Total CK [12-191 29 unit/L unit/L] (12/23/13 7:20 PM) Troponin-I <0.02 ng/mL [0.00-0.40 ng/mL] (12/23/13 7:20 PM) BNP [<=100 pg/mL] 35 pg/mL 3 (12/23/13 7:20 PM) 3Interpretive Data: Elevated results are in line with increasing severity of congestive heart failure. Minor elevations between 100 and 300 may be seen with Myocardial Ischemia, Sodium retaining drugs, and compensated/treated heart failure. URINE CHEM Most recent to 1 oldest [Reference Range]: U Preg [Negative] Negative (12/23/13 7:20 PM) URINE AND STOOL Most recent to 1 oldest [Reference Range]: UA Turbidity [Clear] Marked *ABN* (12/23/13 7:20 PM) UA Color [Yellow] Yellow *NA* (12/23/13 7:20 PM) UA pH [5.0-8.0] 5.0 (12/23/13 7:20 PM) UA Spec Grav 1.025 [<=1.030] (12/23/13 7:20 PM) UA Glucose [Negative Negative mg/dL mg/dL] *NA* (12/23/13 7:20 PM) UA Blood [Negative] Negative (12/23/13 7:20 PM) UA Ketones [Negative Negative mg/dL mg/dL] *NA* (12/23/13 7:20 PM) UA Protein [Negative Negative mg/dL mg/dL] (12/23/13 7:20 PM) UA Urobilinogen 2.0 mg/dL [0.1-1.0 mg/dL] *HI* (12/23/13 7:20 PM) UA Bili [Negative] Negative *NA* (12/23/13 7:20 PM) UA Leuk Est Small [Negative] *ABN* (12/23/13 7:20 PM) UA Nitrite Negative [Negative] (12/23/13 7:20 PM) UA WBC [0-5 /HPF] 6 /HPF *HI* (12/23/13 7:20 PM) UA RBC [0-2 /HPF] 8 /HPF *HI* (12/23/13 7:20 PM) UA Bacteria [None Occasional /HPF Seen /HPF] *NA* (12/23/13 7:20 PM) UA Sq Epi [Few /LPF] Many /LPF *ABN* (12/23/13 7:20 PM) UA Mucus [None Seen Few /LPF /LPF] *NA* (12/23/13 7:20 PM) HEMATOLOGY Most recent to 1 oldest [Reference Range]: WBC [3.7-10.4 K/CMM] 9.2 K/CMM (12/23/13 7:20 PM) RBC [4.20-5.40 4.34 M/CMM M/CMM] (12/23/13 7:20 PM) Hgb [12.0-16.0 g/dL] 12.1 g/dL (12/23/13 7:20 PM) Hct [36.0-48.0 %] 35.7 % *LOW* (12/23/13 7:20 PM) MCV [81.0-99.0 fL] 82.3 fL (12/23/13 7:20 PM) MCH [27.0-31.0 pg] 27.8 pg (12/23/13 7:20 PM) MCHC [32.0-36.0 33.7 g/dL g/dL] (12/23/13 7:20 PM) RDW [11.5-14.5 %] 15.3 % *HI* (12/23/13 7:20 PM) Platelet [133-450 322 K/CMM K/CMM] (12/23/13 7:20 PM) MPV [7.4-10.4 fL] 8.5 fL (12/23/13 7:20 PM) Segs [45.0-75.0 %] 62.4 % (12/23/13 7:20 PM) Lymphocytes 29.5 % [20.0-40.0 %] (12/23/13 7:20 PM) Monocytes [2.0-12.0 6.4 % %] (12/23/13 7:20 PM) Eosinophils [0.0-4.0 1.4 % %] (12/23/13 7:20 PM) Basophils [0.0-1.0 0.3 % %] (12/23/13 7:20 PM) Segs-Bands # 5.7 K/CMM [1.5-8.1 K/CMM] (12/23/13 7:20 PM) Lymphocytes # 2.7 K/CMM [1.0-5.5 K/CMM] (12/23/13 7:20 PM) Monocytes # [0.0-0.8 0.6 K/CMM K/CMM] (12/23/13 7:20 PM) Eosinophils # 0.1 K/CMM [0.0-0.5 K/CMM] (12/23/13 7:20 PM) PT [12.0-14.7 13.4 seconds seconds] (12/23/13 7:20 PM) INR [0.85-1.17] 1.03 4 (12/23/13 7:20 PM) D-Dimer 0.27 ug/mL FEU 5 *NA* (12/23/13 7:20 PM) PTT [22.9-35.8 29.5 seconds 6 seconds] (12/23/13 7:20 PM) 4Interpretive Data: RECOMMENDED RANGES FOR PROTIME INR: 2.0-3.0 for most medical and surgical thromboembolic states. 2.5-3.5 for artificial heart valves and recurrent embolism. INR SHOULD BE USED ONLY FOR PATIENTS ON STABLE ANTICOAGULANT THERAPY. 5Interpretive Data: In DIC, quantitative D-Dimer is generally greater than 0.66 ug/mL FEU. Values of quantitative D-Dimer less than 0.40 ug/mL FEU have been reported to be associated with a low probability of deep vein thrombosis/pulmonary embolism. This test alone should not be used to rule out DVT/PE. 6Interpretive Data: Heparin Therapeutic Range: 57 - 92 Seconds Medications Administered During Your Visit No data available for this section Immunizations No data available for this section Social History Social History Type Response Smoking Status Current every day smoker, Type: Cigarettes, Previous treatment: None, Ready to change: No, Exposure to Tobacco Smoke Lives with someone who smokes, Cigarette Smoking Last 365 Days Yes, Reg Smoking Cessation Counseling Yes
--- OUTSIDE RECORDS SUMMARY | 2018-12-11 19:33 | XMS REPORT | Summary of Care ---
Author Author [facility] Organization [facility] Address Unknown Phone Unavailable Encounter RENE Francis(FIN) [id number] Date(s): 08/12/17 - 08/13/17 [facility] [address] [place] [address]- [phone] Encounter Diagnosis Abdominal pain, acute, epigastric (Discharge Diagnosis) - 08/13/17 Epigastric pain (Final) - 08/19/17 Discharge Disposition: Home or Self Care Attending Physician: Saeid Frederick DO Vital Signs 1 2 3 Most recent to oldest [Reference Range]: 97.7 DegF (08/12/17 8:20 PM) 98.3 DegF (08/12/17 7:23 PM) Temperature Oral [96.4-99.1 DegF] 125/83 mmHg (08/12/17 11:42 PM) 113/83 mmHg (08/12/17 9:47 PM) 105/71 mmHg (08/12/17 8:20 PM) Blood Pressure [90-140/60-90 mmHg] 18 BRMIN (08/12/17 11:42 PM) 18 BRMIN (08/12/17 9:47 PM) 17 BRMIN (08/12/17 8:20 PM) Respiratory Rate [14-20 BRMIN] 73 bpm (08/12/17 11:42 PM) 71 bpm (08/12/17 9:47 PM) 60 bpm (08/12/17 8:20 PM) Peripheral Pulse Rate [60-100 bpm] 118.182 kg (08/12/17 7:23 PM) Weight Problem List No data available for this section Allergies, Adverse Reactions, Alerts Substance Reaction Severity Status NKDA Active Medications famotidine 20 mg, 2 mL, Route: IVP, Drug form: INJ, ONCE, Dosing Weight 118.182, kg, Priori ty: STAT, Start date: 08/12/17 21:14:00 CDT, Stop date: 08/12/17 21:14:00 CDT Notes: (Same as: Pepcid)Can be dilute in 5-10cc NS IVP: Slow IV push over at le ast 2 minutes. Start Date: 08/12/17 Stop Date: 08/12/17 Status: Completed Haldol 5 mg, 1 mL, Route: IM, Drug form: INJ, ONCE, Dosing Weight 118.182, kg, Priority : STAT, Start date: 08/12/17 22:16:00 CDT, Stop date: 08/12/17 22:16:00 CDT Notes: (Same as: Haldol) Start Date: 08/12/17 Stop Date: 08/12/17 Status: Completed Maalox Advanced Regular Strength SUSP 30 mL, Route: PO, Drug Form: SUSP, Dosing Weight 118.182, kg, ONCE, STAT, Start date: 08/12/17 21:13:00 CDT, Stop date: 08/12/17 21:13:00 CDT Notes: (aluminum hydroxide-magnesium hyd-simethicone [phone]/5ml 30 ml ud S US) Start Date: 08/12/17 Stop Date: 08/12/17 Status: Completed metoclopramide 10 mg oral tablet 10 mg=1 tab, PO, Q6H, PRN nausea/vomiting, # 20 tab, 0 Refill(s) Start Date: 08/13/17 Stop Date: 08/13/18 Status: Ordered morphine Sulfate 4 mg, 1 mL, Route: IVP, Drug form: INJ, ONCE, Dosing Weight 118.182, kg, Priorit y: STAT, Start date: 08/13/17 0:01:00 CDT, Stop date: 08/13/17 0:01:00 CDT Notes: (Same as:MORPhine Sulfate) Start Date: 08/13/17 Stop Date: 08/13/17 Status: Completed morphine Sulfate 4 mg, 1 mL, Route: IVP, Drug form: INJ, ONCE, Dosing Weight 118.182, kg, Priorit y: STAT, Start date: 08/12/17 21:13:00 CDT, Stop date: 08/12/17 21:13:00 CDT Notes: (Same as:MORPhine Sulfate) Start Date: 08/12/17 Stop Date: 08/12/17 Status: Completed Omnipaque 300 injectable solution 115 mL, Route: IVP, Dosing Weight 118.182, kg, ONCALL, GFR > 45 mL/min, STAT, Start date: 08/12/17 22:51:00 CDT, Duration: 1 doses or times Start Date: 08/12/17 Stop Date: 08/12/17 Status: Discontinued Omnipaque 350 injectable solution 100 mL, Route: IVP, Dosing Weight 118.182, kg, ONCALL, For CTA exam with GFR > 45 mL/min, STAT, Start date: 08/12/17 23:40:00 CDT, Duration: 1 doses or times Start Date: 08/12/17 Stop Date: 08/12/17 Status: Completed ondansetron 4 mg, 2 mL, Route: IVP, Drug form: INJ, ONCE, Dosing Weight 118.182, kg, Priorit y: STAT, Start date: 08/12/17 21:13:00 CDT, Stop date: 08/12/17 21:13:00 CDT Notes: (Same as: [place]) MEDICATION WASTE Product Size: 4 mgProduct Was ariel: ___ mg Start Date: 08/12/17 Stop Date: 08/12/17 Status: Completed ranitidine 150 mg oral tablet 150 mg=1 tab, PO, BID, # 60 tab, 0 Refill(s) Start Date: 08/13/17 Status: Ordered sucralfate 1 g/10 mL oral suspension 1 gm=10 ml, PO, Before Meals & Bedtime, # 200 ml, 0 Refill(s) Start Date: 08/13/17 Status: Ordered Results ELECTROLYTES Most recent to 1 oldest [Reference Range]: Sodium Lvl [135-145 140 mEq/L mEq/L] (08/12/17 7:41 PM) Potassium Lvl 3.2 mEq/L [3.5-5.1 mEq/L] *LOW* (08/12/17 7:41 PM) Chloride Lvl [95-109 105 mEq/L mEq/L] (08/12/17 7:41 PM) CO2 [24-32 mEq/L] 29 mEq/L (08/12/17 7:41 PM) AGAP [10.0-20.0 9.2 mEq/L mEq/L] *LOW* (08/12/17 7:41 PM) CHEM PANEL Most recent to 1 oldest [Reference Range]: Creatinine Lvl 0.70 mg/dL [0.50-1.40 mg/dL] (08/12/17 7:41 PM) eGFR 110 mL/min/1.73m2 1 *NA* (08/12/17 7:41 PM) BUN [7-22 mg/dL] 9 mg/dL (08/12/17 7:41 PM) Glucose Lvl [70-99 94 mg/dL mg/dL] (08/12/17 7:41 PM) Total Protein 7.9 g/dL [6.4-8.4 g/dL] (08/12/17 7:41 PM) Albumin Lvl [3.5-5.0 3.2 g/dL g/dL] *LOW* (08/12/17 7:41 PM) Globulin [2.7-4.2 4.7 g/dL g/dL] *HI* (08/12/17 7:41 PM) A/G Ratio [0.7-1.6] 0.7 (08/12/17 7:41 PM) Calcium Lvl 9.1 mg/dL [8.5-10.5 mg/dL] (08/12/17 7:41 PM) ALT [0-65 unit/L] 16 unit/L (08/12/17 7:41 PM) AST [0-37 unit/L] 8 unit/L (08/12/17 7:41 PM) Alk Phos [39-136 99 unit/L unit/L] (08/12/17 7:41 PM) Bili Total [0.2-1.3 0.3 mg/dL mg/dL] (08/12/17 7:41 PM) Bili Direct [0.0-0.3 <0.1 mg/dL mg/dL] (08/12/17 7:41 PM) Bili Indirect Unable to Calculate [0.0-1.0] *NA* (08/12/17 7:41 PM) Lipase Lvl [73-393 123 unit/L unit/L] (08/12/17 7:41 PM) 1Result Comment: The eGFR is calculated [...] be mul tiplied by the estimated BMI. CARDIAC ENZYMES Most recent to 1 oldest [Reference Range]: Total CK [12-191 49 unit/L unit/L] (08/12/17 7:41 PM) Troponin-I <0.02 ng/mL [0.00-0.40 ng/mL] (08/12/17 7:41 PM) ENDOCRINOLOGY Most recent to 1 oldest [Reference Range]: S Preg [Negative] Negative *NA* (08/12/17 7:41 PM) HEMATOLOGY Most recent to 1 oldest [Reference Range]: WBC [3.7-10.4 K/CMM] 9.6 K/CMM (08/12/17 7:41 PM) RBC [4.20-5.40 4.85 M/CMM M/CMM] (08/12/17 7:41 PM) Hgb [12.0-16.0 g/dL] 13.7 g/dL (08/12/17 7:41 PM) Hct [36.0-48.0 %] 40.6 % (08/12/17 7:41 PM) MCV [80.0-98.0 fL] 83.8 fL (08/12/17 7:41 PM) MCH [27.0-31.0 pg] 28.2 pg (08/12/17 7:41 PM) MCHC [32.0-36.0 33.7 g/dL g/dL] (08/12/17 7:41 PM) RDW [11.5-14.5 %] 16.0 % *HI* (08/12/17 7:41 PM) MPV [7.4-10.4 fL] 8.5 fL (08/12/17 7:41 PM) Platelet [133-450 363 K/CMM K/CMM] (08/12/17 7:41 PM) Segs [45.0-75.0 %] 63.1 % (08/12/17 7:41 PM) Lymphocytes 27.8 % [20.0-40.0 %] (08/12/17 7:41 PM) Monocytes [2.0-12.0 6.5 % %] (08/12/17 7:41 PM) Eosinophils [0.0-4.0 2.2 % %] (08/12/17 7:41 PM) Basophils [0.0-1.0 0.4 % %] (08/12/17 7:41 PM) Segs-Bands # 6.0 K/CMM [1.5-8.1 K/CMM] (08/12/17 7:41 PM) Lymphocytes # 2.7 K/CMM [1.0-5.5 K/CMM] (08/12/17 7:41 PM) Monocytes # [0.0-0.8 0.6 K/CMM K/CMM] (08/12/17 7:41 PM) Eosinophils # 0.2 K/CMM [0.0-0.5 K/CMM] (08/12/17 7:41 PM) Basophils # [0.0-0.2 0.0 K/CMM K/CMM] (08/12/17 7:41 PM) D-Dimer 0.56 ug/mL FEU *NA* (08/12/17 10:26 PM) Immunizations No data available for this section Procedures No data available for this section Social History Social History Type Response Smoking Status Current every day smoker; Type: Cigarettes; Previous treatment: None; Ready to change: No; Lives with someone who smokes; Cigarette Smoking Last 365 Days Yes; Reg Smoking Cessation Counseling Yes; Tobacco use per day: 2; Started at age: 12.0; entered on: 08/12/17 Assessment and Plan No data available for this section
--- OUTSIDE RECORDS SUMMARY | 2018-12-11 19:33 | XMS REPORT | Summary of Care ---
Author Author [facility] Organization [facility] Address Unknown Phone Unavailable Encounter HQ Tito(FIN) [id number] Date(s): 10/19/18 - 10/19/18 [facility] [address] [place], [place] [address] [phone] Encounter Diagnosis Dentalgia (Discharge Diagnosis) - 10/19/18 Dental caries (Discharge Diagnosis) - 10/19/18 Discharge Disposition: Home or Self Care Attending Physician: Bee Roldan MD Vital Signs Most recent to 1 2 oldest [Reference Range]: Temperature Oral 98 DegF [96.4-99.1 DegF] (10/19/18 1:03 AM) Blood Pressure 158/78 mmHg 177/107 mmHg [90-140/60-90 mmHg] *HI* *HI* (10/19/18 1:34 AM) (10/19/18 1:03 AM) Respiratory Rate 20 BRMIN [14-20 BRMIN] (10/19/18 1:03 AM) Peripheral Pulse 74 bpm Rate [60-100 bpm] (10/19/18 1:03 AM) Weight 116 kg (10/19/18 1:03 AM) Problem List No data available for this section Allergies, Adverse Reactions, Alerts No Known Medication Allergies Medications Augmentin 875 mg oral tablet 875 mg=1 tab, PO, Q12H, X 10 day, # 20 tab, 0 Refill(s) Start Date: 10/19/18 Stop Date: 10/29/18 Status: Ordered tramadol 50 mg, 1 tab, Route: PO, Drug form: TAB, ONCE, Dosing Weight 116, kg, > 50 kg, Priority: STAT, Start date: 10/19/18 1:08:00 CDT, Stop date: 10/19/18 1:08:00 CDT Notes: Not to exceed 400mg/day. (Same As: Ultram) Start Date: 10/19/18 Stop Date: 10/19/18 Status: Completed tramadol 50 mg oral tablet 50 mg=1 tab, PO, Q6H, PRN Pain, X 3 day, # 12 tab, 0 Refill(s) Start Date: 10/19/18 Stop Date: 10/22/18 Status: Ordered Results No data available for this section Immunizations [...] Started [age] age: 12.0; entered on: 10/19/18 Assessment and Plan No data available for this section
--- OUTSIDE RECORDS SUMMARY | 2018-12-11 19:33 | XMS REPORT | CCD ---
Author Author Auto Generated Organization [facility] Address Unknown Phone Unavailable Care Team Providers Care Story Reader Name Role Phone Javon Mcclellan CP Allergies, Adverse Reactions, Alerts Substance Reaction Status NKDA Active Medications Medication Instructions Start Date End Date Status Ultram 50 mg oral 1 - 2 tabs, PO, Q4-6H, PRN, 30 tab, 11/21/2011 Ordered tablet as needed for pain, Substitution Allowed tramadol 50 mg oral 50 mg, Route: PO, ONCE, Start date: 11/21/2011 11/21/2011 Completed tablet 11/21/11 18:00:00, Stop date: 11/21/11 18:00:00 Vital Signs Most recent to oldest [Reference Range]: 1 Height 165.10 cm (11/21/2011 16:07:00) Weight 104.545 kg (11/21/2011 16:07:00)
[2018-12-11 19:48] VITALS: BP 147/84
== END 2018-12-11 20:08 | disposition home or self-care (01) ==
LOC: ER 19:29
DX: S16.1XXA Strain of muscle, fascia and tendon at neck level, initial encounter (principal); V43.62XA Car passenger injured in collision with other type car in traffic accident, initial encounter; Y92.410 Unspecified street and highway as the place of occurrence of the external cause; F17.200 Nicotine dependence, unspecified, uncomplicated; K21.9 Gastro-esophageal reflux disease without esophagitis
CPT/HCPCS: 99282